=== PATIENT | female | born 1930 | race Caucasian/White ===

== ENCOUNTER 2018-09-08 14:24 | Emergency (ER) | payer MEDICARE, OTHER ==
[~2018-09-08] VITALS: Ht 149.9 cm; Wt 54.9 kg
--- NOTE | 2018-09-08 14:36 | NUR ---
BIBRA 88 FROM HOME C/O PALPITATION AND RAPID [phone] IN THE FIELD. PT AOX4, TACHYCARDIC, HYPOTENSIVE. RR EVEN AND UNLABORED. SKIN INTACT. NO ACUTE DISTRESS NOTED. HOOKED TO MONITOR AND MADE COMFORTABLE. SEEN BY DR BUCK. WILL CONT TO MONITOR.
[2018-09-08] MEDS ORDERED: DILTIAZEM HCL 25 MG IV ONE (14:49)
[2018-09-08] MEDS ORDERED: DILTIAZEM HCL 50 MG IV IV ONE (15:00)
[2018-09-08] MEDS ORDERED: Calcium Gluconate 1GM/10ML 4.65 MEQ in IV NS 0.9% 50 ML IV ONE (15:00)
[2018-09-08] MEDS ORDERED: IV NS 0.9% 100 ML IV ONE (15:00)
[2018-09-08 15:06] LABS: BASOPHILS % (AUTO) 0.2 % (0.0-2.0); EOSINOPHILS % (AUTO) 1.6 % (0.0-6.0); HEMATOCRIT 45 % (33-45); HEMOGLOBIN 14.6 g/dL (11.5-14.8); LYMPHOCYTES # (AUTO) 0.6 /CMM (0.8-4.8); LYMPHOCYTES % (AUTO) 7.8 % (20.0-44.0); MEAN CORPUSCULAR HGB CONC 33 g/dl (31.0-36.0); MEAN CORPUSCULAR VOLUME 96 fL (82-100); MONOCYTES # (AUTO) 0.8 /CMM (0.1-1.30); MONOCYTES % (AUTO) 9.3 % (2.0-12.0); NEUTROPHILS # (AUTO) 6.6 /CMM (1.8-8.9); NEUTROPHILS % (AUTO) 81.1 % (43.0-81.0); PLATELET COUNT (AUTO) 232 /CMM (150-450); RED BLOOD CELL COUNT(AUTO) 4.71 MIL/uL (4.0-5.2); WHITE BLOOD COUNT (AUTO) 8.2 K/uL (4.3-11.0)
[2018-09-08 15:19] LABS: CALCIUM, SERUM 10.8 mg/dL (8.5-10.1); CARBON DIOXIDE 31 mmol/L (21-32); CHLORIDE 105 mmol/L (98-107); CREATININE 1.6 mg/dL (0.6-1.3); GLUCOSE 114 mg/dL (74-106); POTASSIUM 4.5 mmol/L (3.5-5.1); SODIUM SERUM 143 mmol/L (136-145); UREA NITROGEN, BLOOD 22 mg/dL (7-18)
[2018-09-08 15:30] LABS: ALANINE AMINOTRANSFERASE 10 U/L (12-78); ALBUMIN 3.7 g/dL (3.4-5.0); ALKALINE PHOSPHATASE 71 U/L (46-116); ASPARTATE AMINOTRANSFERASE 15 U/L (15-37); B-TYPE NATRIURETIC PEPTIDE 817 PG/ML (0-125); BILIRUBIN,DIRECT 0.1 mg/dL (0.0-0.2); BILIRUBIN,TOTAL 0.6 mg/dL (0.2-1.0); TOTAL PROTEIN, SERUM 7.4 g/dL (6.4-8.2)
[2018-09-08 15:35] LABS: APPEARANCE,URINE Cloudy (CLEAR); BILIRUBIN,URINE Negative (NEGATIVE); BLOOD, URINE Moderate Ery/uL (NEGATIVE); COLOR,URINE Other (YELLOW); KETONES,URINE Trace (NEGATIVE); LEUKOCYTE ESTERASE ,URINE Small (NEGATIVE); NITRITE, URINE Negative (NEGATIVE); PROTEIN,URINE >=300 mg/dl (NEGATIVE); UGLUCOSE Negative (NEGATIVE); UROBILINOGEN,URINE 0.2 EU/dL (0.2)
[2018-09-08 15:44] LABS: BACTERIA,URINE Moderate /HPF (None Seen); SQUAMOUS EPITHELIAL CELL,UR Few /HPF (None Seen)
--- NOTE | 2018-09-08 16:10 | NUR ---
HEART RATE STABILIZED AFTER MEDICATION. MD STREET
--- NOTE | 2018-09-08 16:35 | NUR ---
CALLED [employer] [facility] ARCHITECT WAS PAGED.
[2018-09-08] MEDS ORDERED: CEFTRIAXONE 1GM BAG (ER ONLY) 1 GM/50 ML PIGGYBACK IV ONE (17:00)
[2018-09-08] MEDS ORDERED: CEFTRIAXONE 1GM BAG (ER ONLY) 50 ML IV ONE (18:05)
--- NOTE | 2018-09-08 18:48 | NUR ---
CALLED FOR FOOD TRAY
--- NOTE | 2018-09-08 18:52 | NUR ---
SPOKE WITH PT DAUGHTER, IVA, IN [place]. INFORMED HER PT WILL BE TRANSFERRED AND WILL KEEP HER UPDATED. CELL NUMBER [phone]
--- NOTE | 2018-09-08 18:57 | NUR ---
PT UP IN BED, EATING AND COMFORTABLE
--- NOTE | 2018-09-08 20:00 | NUR ---
PATIENT WILL BE TRANSFERED TO [facility] ETA OF 2100 WAS GIVEN. NUMBER TO GIVE REPORT
[2018-09-08 21:35] VITALS: BP 111/62
--- NOTE | 2018-09-08 21:35 | NUR ---
REPORT GIVEN TO SPINDLE SANDER DEREJE HEATH AND ESPINOZA SHAH AT [facility] FOR JORDEN
== END 2018-09-08 21:35 | disposition short-term general hospital (02) ==
LOC: ER 14:26
DX: I48.92 Unspecified atrial flutter (principal); R00.2 Palpitations; R60.0 Localized edema; F03.90 Unspecified dementia, unspecified severity, without behavioral disturbance, psychotic disturbance, mood disturbance, and anxiety; I48.91 Unspecified atrial fibrillation; F32.9 Major depressive disorder, single episode, unspecified; Z98.890 Other specified postprocedural states
CPT/HCPCS: 36415; 71045; 80048; 80076; 81001; 83880; 84443; 84484; 85025; 85730; 87077; 87081; 87086; 87186; 93005 ×2; 96365; 96367; 96375; 99285; A4216; A4606; J0610; J0696; J3490; J7030; 81000-TC

== ENCOUNTER 2018-10-29 11:00 | Emergency (ER) | payer MEDICARE ==
[~2018-10-29] VITALS: Ht 152.4 cm; Wt 56.2 kg
--- NOTE | 2018-10-29 11:08 | NUR ---
PT EDY FROM HOME FOR PROGRESSIVE SOB; PT AAOX4, PT ON MONITOR, VSS, NAD NOTED, PENDING MD VICKERS
[2018-10-29] MEDS ORDERED: LATANOPROST 0.005% (11:13)
[2018-10-29] MEDS ORDERED: FLUOXETINE HCL 10 MG CAPSULE (11:13)
[2018-10-29] MEDS ORDERED: AMIODARONE HCL 200 MG TABLET (11:13)
[2018-10-29 11:32] LABS: BASOPHILS % (AUTO) 0.7 % (0.0-2.0); EOSINOPHILS % (AUTO) 1.5 % (0.0-6.0); HEMATOCRIT 40 % (33-45); HEMOGLOBIN 13.5 g/dL (11.5-14.8); LYMPHOCYTES # (AUTO) 0.4 /CMM (0.8-4.8); LYMPHOCYTES % (AUTO) 5.4 % (20.0-44.0); MEAN CORPUSCULAR HGB CONC 34 g/dl (31.0-36.0); MEAN CORPUSCULAR VOLUME 96 fL (82-100); MONOCYTES # (AUTO) 0.5 /CMM (0.1-1.30); MONOCYTES % (AUTO) 7.5 % (2.0-12.0); NEUTROPHILS # (AUTO) 5.6 /CMM (1.8-8.9); NEUTROPHILS % (AUTO) 84.9 % (43.0-81.0); PLATELET COUNT (AUTO) 246 /CMM (150-450); RED BLOOD CELL COUNT(AUTO) 4.15 MIL/uL (4.0-5.2); WHITE BLOOD COUNT (AUTO) 6.6 K/uL (4.3-11.0)
[2018-10-29] MEDS ORDERED: LATA2.5D7 EACHEYE (11:37)
[2018-10-29 11:38] LABS: CALCIUM, SERUM 9.3 mg/dL (8.5-10.1); CARBON DIOXIDE 30 mmol/L (21-32); CHLORIDE 105 mmol/L (98-107); GLUCOSE 89 mg/dL (74-106); POTASSIUM 4.2 mmol/L (3.5-5.1); SODIUM SERUM 142 mmol/L (136-145); UREA NITROGEN, BLOOD 22 mg/dL (7-18)
[2018-10-29 11:52] LABS: B-TYPE NATRIURETIC PEPTIDE 8400 PG/ML (0-125)
[2018-10-29] MEDS ORDERED: MULT-24 PO (12:07)
--- NOTE | 2018-10-29 14:29 | NUR ---
PT BEING TRANSFERED TO [facility] DIRECT ADMIT TO ROOM 1300-2 RN FOR REPORT [phone] [phone]
--- NOTE | 2018-10-29 14:33 | NUR ---
[facility] ETA 1530 HOURS
[2018-10-29 14:41] VITALS: BP 188/66
--- NOTE | 2018-10-29 15:37 | NUR ---
REPORT GIVEN TO JODIE NURSE AT [facility], PT LEFT IN STABLE CONDITION VIA [facility]; VSS, NAD NOTED, ALL PPW GIVEN TO AMBULANCE STAFF.
== END 2018-10-29 15:40 | disposition short-term general hospital (02) ==
LOC: ER 11:04
DX: I13.0 Hypertensive heart and chronic kidney disease with heart failure and stage 1 through stage 4 chronic kidney disease, or unspecified chronic kidney disease (principal); I50.9 Heart failure, unspecified; N18.9 Chronic kidney disease, unspecified; J90 Pleural effusion, not elsewhere classified; R06.02 Shortness of breath; I48.91 Unspecified atrial fibrillation; F32.9 Major depressive disorder, single episode, unspecified; Z98.890 Other specified postprocedural states
CPT/HCPCS: 36415; 71045-TC; 80048-TC; 83880; 84484-TC; 85025-TC; 85730-TC

== ENCOUNTER 2019-10-22 08:56 | Inpatient (IN) | payer MEDICARE ==
[2019-10-22] VITALS (22 sets, daily range): BP systolic 122–172; BP diastolic 60–117
[~2019-10-22] VITALS: Ht 162.6 cm; Wt 54.4 kg
[~2019-10-22 08:56] MED LIST: LATA2.5D7 EACHEYE; MULT-24 PO
--- NOTE | 2019-10-22 09:00 | NUR ---
Pt received from Medics in Respiratory distress, Restless/agitated/Confused Tachypneic/tachycardic with saturations around 46%. Pt skin pale and mottled. Direct Bed to Negative pressure room/isolation prepared for possible intubation/Rescue Bipap.
[2019-10-22 09:20] LABS: BASOPHILS # (AUTO) 0.1 /CMM (0.0-0.2); BASOPHILS % (AUTO) 0.7 % (0.0-2.0); EOSINOPHILS % (AUTO) 0.8 % (0.0-6.0); HEMATOCRIT 40 % (33-45); HEMOGLOBIN 12.5 g/dL (11.5-14.8); LYMPHOCYTES # (AUTO) 1.1 /CMM (0.8-4.8); LYMPHOCYTES % (AUTO) 15.3 % (20.0-44.0); MEAN CORPUSCULAR HGB CONC 32 g/dl (31.0-36.0); MEAN CORPUSCULAR VOLUME 99 fL (82-100); MONOCYTES # (AUTO) 0.6 /CMM (0.1-1.30); MONOCYTES % (AUTO) 7.9 % (2.0-12.0); NEUTROPHILS # (AUTO) 5.6 /CMM (1.8-8.9); NEUTROPHILS % (AUTO) 75.3 % (43.0-81.0); PLATELET COUNT (AUTO) 308 /CMM (150-450); RED BLOOD CELL COUNT(AUTO) 4.02 MIL/uL (4.0-5.2); WHITE BLOOD COUNT (AUTO) 7.4 K/uL (4.3-11.0)
--- NOTE | 2019-10-22 09:20 | NUR ---
Bipap and ABG ordered by ER provided- see RT notes
[2019-10-22 09:30] LABS: CARBON DIOXIDE 24 mmol/L (21-32); CHLORIDE 108 mmol/L (98-107); CREATININE 2.1 mg/dL (0.6-1.3); GLUCOSE 184 mg/dL (74-106); POTASSIUM 3.8 mmol/L (3.5-5.1); SODIUM SERUM 144 mmol/L (136-145); UREA NITROGEN, BLOOD 28 mg/dL (7-18)
[2019-10-22 09:32] LABS: APPEARANCE,URINE Cloudy (CLEAR); BILIRUBIN,URINE SMALL (NEGATIVE); BLOOD, URINE Moderate Ery/uL (NEGATIVE); COLOR,URINE Yellow (YELLOW); KETONES,URINE Trace (NEGATIVE); NITRITE, URINE Negative (NEGATIVE); PH,URINE 5.5 (5.0-8.0); PROTEIN,URINE >=300 mg/dl (NEGATIVE); UGLUCOSE Negative (NEGATIVE); UROBILINOGEN,URINE 0.2 EU/dL (0.2)
--- NOTE | 2019-10-22 09:35 | NUR ---
RT NOTE PT PLACED ON BIPAP PER MD WEISS ORDER. ST 11/11 100% BUR 16. ALARMS SET SET PER PROTOCOL AND AUDIBLE. BIPAP PLUGGED IN TO RED OUTLET. AMBU BAG AT BED SIDE. FULL FACE MASK SIZE MEDIUM SECURED PROPERLY. Addendum: 10/22/19 at 0936 by LINDSAY WEISS RT Amended: Links added.
[2019-10-22 09:43] LABS: ALANINE AMINOTRANSFERASE 48 U/L (12-78); ALBUMIN 3.1 g/dL (3.4-5.0); ALKALINE PHOSPHATASE 76 U/L (46-116); ASPARTATE AMINOTRANSFERASE 51 U/L (15-37); B-TYPE NATRIURETIC PEPTIDE 58735 PG/ML (0-125); BILIRUBIN,TOTAL 1.4 mg/dL (0.2-1.0); TOTAL PROTEIN, SERUM 6.9 g/dL (6.4-8.2)
--- NOTE | 2019-10-22 09:45 | NUR ---
pt on Bipap at 15/5 100%. Respirations more even
--- NOTE | 2019-10-22 09:53 | NUR ---
panel on-call paged
--- NOTE | 2019-10-22 09:56 | NUR ---
room [id number]
[2019-10-22 09:59] LABS: D-DIMER 4.05 mg/L(FEU (0.17-0.50)
[2019-10-22] MEDS ORDERED: LEVOFLOXACIN 750 MG /D5W 150ML 150 ML IV ONE ×2 (10:00→10:08)
[2019-10-22] MEDS ORDERED: ASPIRIN 325 MG TABLET PO ONE (10:00)
[2019-10-22] MEDS ORDERED: NITROGLYCERIN PACKET 1 GM PACKET TD ONE (10:00)
[2019-10-22] MEDS ORDERED: FUROSEMIDE 40 MG/4 ML VIAL IV ONE (10:00)
[2019-10-22] MEDS ORDERED: FLUO10CA27 PO (10:05)
[2019-10-22] MEDS ORDERED: LEVO25TA9 PO (10:05)
[2019-10-22 10:08] LABS: ABG BASE EXCESS -8.3 mmol/L; ABG OXYGEN SATURATION 96.1 % (92.0-98.5); ABG PCO2 39.4 mmHg (35.0-45.0); ABG PH 7.276 (7.350-7.450); ABG PO2 98.3 mmHg (75.0-100.0); AaDO2 575.3 mmHg; COHb 0.6 % (0.5-1.5); MetHb 0.4 % (0.0-1.5); O2Hb 95.1 % (94.0-97.0); SITE, ABG Left Radial; VENT MODE, BG ST 15/5 100%
[2019-10-22] MEDS ORDERED: FUROSEMIDE 40 MG/4 ML VIAL ONE (10:08)
[2019-10-22] MEDS ORDERED: NITROGLYCERIN PACKET 1 GM PACKET ONE (10:08)
[2019-10-22] MEDS ORDERED: ASPIRIN 325 MG TABLET ONE (10:09)
[2019-10-22 10:15] LABS: CREATINE KINASE, TOTAL 297 U/L (26-192); FERRITIN 39 ng/mL (8-388)
--- NOTE | 2019-10-22 10:15 | NUR ---
Asleep, easily awakened appears more comfortable on BiPap
[2019-10-22 10:16] LABS: C-REACTIVE PROTEIN 1.6 mg/dL (0.0-0.9)
[2019-10-22 10:17] LABS: BACTERIA,URINE Many /HPF (None Seen); LEUKOCYTE ESTERASE ,URINE 2+ (NEGATIVE); SQUAMOUS EPITHELIAL CELL,UR Few /HPF (None Seen); WBC,URINE 21-50 /HPF (0-3)
--- NOTE | 2019-10-22 10:46 | NUR ---
Report/NKE to ESPINOZA Levi
[2019-10-22] MEDS ORDERED: ASPIRIN 300 MG/SUPP.RECT RC ONE (10:54)
[2019-10-22] MEDS ORDERED: Z GUARD REMEDY 2 OZ OINT TP PRN (11:00)
[2019-10-22] MEDS ORDERED: ASPIRIN 300 MG/SUPP.RECT RC SCH (11:00)
[2019-10-22] MEDS ORDERED: ONDANSETRON HCL/PF 4 MG/2 ML VIAL IVP PRN (11:00)
[2019-10-22] MEDS ORDERED: ACETAMINOPHEN 650 MG/SUPP.RECT RC PRN (11:00)
[2019-10-22] MEDS ORDERED: BUMETANIDE INJ 8 MG in IV NS 0.9% 48 ML IV ONE (11:00)
--- NOTE | 2019-10-22 11:10 | NUR ---
ICU/RN PT IS ADMITTED FROM ER, FROM HOME .WAS FOUND ALOC ,SOB. AND LOW SATO2.PT WAS ON BI-PAP IN ER.PER DR CHILD PLACED ON 15L NON-REBREATHER MASK SAT O2-98%.PT IS AWAKE,ALERT.BLIND.NO PAIN REPORTED AT THIS TIME.PERIFERAL IV.F/C IN PLACE.DRAINING WITH YELLOW URINE.LASIX 40 MG WAS GIVEN IN ER.PT HAS GENERALIZED EDEMA. REDNESS ON RAFIA AREA NOTED. PT IS DNR/DNI.RAFIA CARE PROVIDED,PLACED ON MONITOR. SR ON MONITOR.V/S STABLE,AFEBRILE,NO PAIN REPORTED AT THIS TIME.
[2019-10-22] MEDS ORDERED: ALBUTEROL FS 2.5 MG/0.5 ML VIAL.NEB NEB PRN (11:30)
[2019-10-22] MEDS ORDERED: IPRATROPIUM NEB FS 0.5 MG/2.5 ML AMPUL.NEB NEB PRN (11:30)
[2019-10-22 12:28] LABS: BILIRUBIN,DIRECT 0.3 mg/dL (0.0-0.2)
[2019-10-22] MEDS: ENOXAPARIN SODIUM 30 MG/0.3 ML DISP.SYRIN SQ SCH (12:36)
--- NOTE | 2019-10-22 15:05 | NUR ---
ICU/RN TALK TO THE FAMILY SIMBA-DAUGHTER [phone]-SHE LIVES OUT OF STATE.PT LIVES WITH HER SON ,WHO IS AUTISTIC,HE IS NOT ABLE TO PROVIDE GOOD CARE FOR HIS MOM ANYMORE..PT IS W/CHAIR BOUND, BLIND,NEED PLACEMENT FOR NURSING FACILITY OR LONG TERM CARE ADMINISTRATOR IN THE HOUSE.CISCO NETWORK ENGINEER NOTIFIED.LIFESTYLE COORDINATOR NOTIFIED.
--- NOTE | 2019-10-22 18:30 | NUR ---
ICU/RN PT IS RESTING IN THE BED .BUMEX 8 MG IV GIVEN ORDERED.V/S STABLE ,AFEBRILE.NO PAIN REPORTED AT THIS TIME.
--- NOTE | 2019-10-22 20:00 | NUR ---
Received patient awake alert blind oriented x1.Reoriented to place and time.Dx:CHF,Respiratory Failure,R/O COVID.Afebrile,SR,Normotensive.Respiration even and unlabored with O2 15L NRB mask sat 95%-99%.Denies pain.With sob on exertion.NPO status.FC to gravity draining clear yellow urine.Turned and repositioned to comfort offloading pressure points.Bed low,locked,side rails up,bed alarm on and call light within easy reach.DROPLET/CONTACT isolation maintained. Continue monitoring.
[2019-10-22] MEDS: LATANOPROST EYE DROP 0.005% 2.5 ML BOTTLE EACHEYE SCH (21:41)
[2019-10-23] VITALS (28 sets, daily range): BP systolic 113–186; BP diastolic 54–98
--- NOTE | 2019-10-23 04:13 | NUR ---
Patient BP 186/90 Nuris HOFFMAN here made aware with orders received and carried out. Patient chest pain or sob.Continue monitoring.
[2019-10-23] MEDS ORDERED: hydrALAZINE HCL IV 20 MG VIAL IV PRN (04:30)
[2019-10-23 05:22] LABS: BASOPHILS # (AUTO) 0.1 /CMM (0.0-0.2); BASOPHILS % (AUTO) 0.7 % (0.0-2.0); EOSINOPHILS % (AUTO) 0.7 % (0.0-6.0); HEMATOCRIT 34 % (33-45); HEMOGLOBIN 11.4 g/dL (11.5-14.8); LYMPHOCYTES # (AUTO) 0.4 /CMM (0.8-4.8); LYMPHOCYTES % (AUTO) 6.5 % (20.0-44.0); MEAN CORPUSCULAR HGB CONC 33 g/dl (31.0-36.0); MEAN CORPUSCULAR VOLUME 95 fL (82-100); MONOCYTES # (AUTO) 0.7 /CMM (0.1-1.30); MONOCYTES % (AUTO) 9.8 % (2.0-12.0); NEUTROPHILS # (AUTO) 5.7 /CMM (1.8-8.9); NEUTROPHILS % (AUTO) 82.3 % (43.0-81.0); PLATELET COUNT (AUTO) 217 /CMM (150-450); RED BLOOD CELL COUNT(AUTO) 3.62 MIL/uL (4.0-5.2); WHITE BLOOD COUNT (AUTO) 6.9 K/uL (4.3-11.0)
[2019-10-23 05:56] LABS: ALANINE AMINOTRANSFERASE 57 U/L (12-78); ALBUMIN 2.8 g/dL (3.4-5.0); ALKALINE PHOSPHATASE 64 U/L (46-116); ASPARTATE AMINOTRANSFERASE 59 U/L (15-37); CALCIUM, SERUM 9.2 mg/dL (8.5-10.1); CARBON DIOXIDE 28 mmol/L (21-32); CHLORIDE 105 mmol/L (98-107); CREATININE 2.2 mg/dL (0.6-1.3); GLUCOSE 75 mg/dL (74-106); MAGNESIUM 1.6 mg/dL (1.8-2.4); PHOSPHORUS 4.2 mg/dL (2.5-4.9); POTASSIUM 3.5 mmol/L (3.5-5.1); SODIUM SERUM 144 mmol/L (136-145); TOTAL PROTEIN, SERUM 6.2 g/dL (6.4-8.2); UREA NITROGEN, BLOOD 30 mg/dL (7-18)
--- NOTE | 2019-10-23 06:00 | NUR ---
Patient last BP 140/58 turned and repositioned.Appears comfortable.Good urine output. Denies pain or sob.SR,afebrile throughout the night.Will endorse to day shift for continuity of care.
[2019-10-23 06:14] LABS: CHOLESTEROL 247 mg/dL (<200); CREATINE KINASE, TOTAL 173 U/L (26-192); FERRITIN 37 ng/mL (8-388); HDL CHOLESTEROL 54 mg/dL (40-60); LDL 176 mg/dL (0-99); THYROID STIMULATING HORMONE 27.646 uIU/mL (0.358-3.74); TRIGLYCERIDES 62 mg/dL (30-150)
[2019-10-23 06:17] LABS: D-DIMER 5.38 mg/L(FEU (0.17-0.50)
[2019-10-23 07:21] LABS: B-TYPE NATRIURETIC PEPTIDE 46795 PG/ML (0-125)
[2019-10-23] MEDS ORDERED: BUMETANIDE INJ 8 MG in IV NS 0.9% 48 ML IV ONE (09:00)
[2019-10-23] MEDS ORDERED: FUROSEMIDE 40 MG/4 ML VIAL IV SCH (09:00)
[2019-10-23] MEDS: PANTOPRAZOLE 40 MG VIAL IV SCH (09:10)
[2019-10-23] MEDS: POTASSIUM CL. PREMIX PERIPHER. 50 ML IV SCH ×4 (09:10→14:46)
[2019-10-23] MEDS: ENOXAPARIN SODIUM 30 MG/0.3 ML DISP.SYRIN SQ SCH (09:11)
--- NOTE | 2019-10-23 09:11 | NUR ---
placed into 6 lpm o2 flow via nasal cannula from non rebreather. Addendum: 10/23/19 at 13 by AUREA GOVEA RT Amended: Links added.
[2019-10-23] MEDS ORDERED: Magnesium 1GM/D5W 100ML PREMIX 100 ML IV SCH ×2 (12:00→15:00)
[2019-10-23] MEDS ORDERED: POLYETHYLENE GLYCOL 3350 17 GM POWD.PACK PO PRN (17:00)
--- NOTE | 2019-10-23 17:05 | NUR ---
ICU/RN PT IS STABLE TO TRANSFER TO TELE UNIT .AWAKE ,ALERT.EATS 100% FROM HER MEAL TRAY.DUE MEDS ATE GIVEN ORDERED.V/S STABLE ,AFEBRILE
--- NOTE | 2019-10-23 17:30 | NUR ---
it integration architect Notes Received patient from ICU, transferred. Patient in stable condition. Alert and oriented x3 Sinus Rhythm. Per ICU nurse Dominguez catheter drained 3000mL. Yvrose Redness. Patient is on 2gm sodium diet. Eating right now without any signs of respiratory distress or swallow difficulty. R FA 18g. HARDIK Mid Line. Per hand off IV bumix given. 1.6gm IV given. KCL 40 meq given to correct hypokalemia.
--- NOTE | 2019-10-23 19:01 | NUR ---
magnet placer Notes Patient is in bed resting comfortably. No acute events. Bed in lowest position, Call light within reach. All measures taken for client safety. Will continue to monitor.
[2019-10-23] MEDS: LATANOPROST EYE DROP 0.005% 2.5 ML BOTTLE EACHEYE SCH (22:07)
[2019-10-24] VITALS: BP 133/69
[2019-10-24 04:00] VITALS: BP 121/61
[2019-10-24 08:00] VITALS: BP_SYST 133; BP_DIAS 72; BP_DIAS 80
--- NOTE | 2019-10-24 08:15 | NUR ---
upper cutter machine Notes Received patient from night coordinator. Patient is on 6L nasal cannula With 02 Sat of 94. Alert and oreintedx3. NSR 70s Patient has a diaper. FC draining clear yellow urine. Bedrest. Skin has aurea redness. On a 2g sodium diet. RFA 18g and 18g midline HARDIK. Flushing well and dressing intact. Spoke with daughter this AM and she is out of state. Patient was informed via daughters request that her son with Autism is being cared for and needs met. Bed in lowest position, call light within reach, all patient needs attended to.
[2019-10-24 08:41] LABS: BASOPHILS % (AUTO) 0.3 % (0.0-2.0); EOSINOPHILS % (AUTO) 2.5 % (0.0-6.0); HEMATOCRIT 35 % (33-45); HEMOGLOBIN 11.7 g/dL (11.5-14.8); LYMPHOCYTES # (AUTO) 0.7 /CMM (0.8-4.8); MEAN CORPUSCULAR HGB CONC 33 g/dl (31.0-36.0); MEAN CORPUSCULAR VOLUME 94 fL (82-100); MONOCYTES # (AUTO) 0.9 /CMM (0.1-1.30); MONOCYTES % (AUTO) 11.5 % (2.0-12.0); NEUTROPHILS # (AUTO) 6.4 /CMM (1.8-8.9); NEUTROPHILS % (AUTO) 77.7 % (43.0-81.0); PLATELET COUNT (AUTO) 235 /CMM (150-450); RED BLOOD CELL COUNT(AUTO) 3.76 MIL/uL (4.0-5.2); WHITE BLOOD COUNT (AUTO) 8.2 K/uL (4.3-11.0)
[2019-10-24 09:03] LABS: ALANINE AMINOTRANSFERASE 53 U/L (12-78); ALBUMIN 2.7 g/dL (3.4-5.0); ALKALINE PHOSPHATASE 64 U/L (46-116); ASPARTATE AMINOTRANSFERASE 49 U/L (15-37); BILIRUBIN,TOTAL 0.8 mg/dL (0.2-1.0); CALCIUM, SERUM 9.1 mg/dL (8.5-10.1); CARBON DIOXIDE 30 mmol/L (21-32); CHLORIDE 100 mmol/L (98-107); CREATININE 2.4 mg/dL (0.6-1.3); GLUCOSE 90 mg/dL (74-106); MAGNESIUM 1.6 mg/dL (1.8-2.4); POTASSIUM 3.5 mmol/L (3.5-5.1); SODIUM SERUM 139 mmol/L (136-145); TOTAL PROTEIN, SERUM 6.2 g/dL (6.4-8.2); UREA NITROGEN, BLOOD 31 mg/dL (7-18)
[2019-10-24] MEDS: PANTOPRAZOLE 40 MG VIAL IV SCH (09:15)
[2019-10-24] MEDS: Fluoxetine 10 mg capsule PO SCH (09:15)
[2019-10-24] MEDS: ENOXAPARIN SODIUM 30 MG/0.3 ML DISP.SYRIN SQ SCH (09:15)
[2019-10-24] MEDS: LEVOTHYROXINE SODIUM 25 MCG TABLET PO SCH (09:15)
--- NOTE | 2019-10-24 10:30 | NUR ---
wood cabinetmaker Notes Central supply called x1 for IV pump for Levaquin infusion. Will follow up again.
[2019-10-24] MEDS: POTASSIUM CHLORIDE 20 MEQ TAB.PRT.SR PO SCH ×3 (11:12→11:36)
[2019-10-24] MEDS: LEVOFLOXACIN 500 MG /D5W 100ML 500 MG in PREMIX 1 EA IV SCH (11:12)
[2019-10-24] MEDS: FUROSEMIDE 100 MG/10 ML VIAL IV SCH ×3 (11:12→18:31)
[2019-10-24 12:00] VITALS: BP 133/72
[2019-10-24 16:00] VITALS: BP 133/72
--- NOTE | 2019-10-24 19:00 | NUR ---
rehab nurse Notes Patient is in bed resting comfortably. No acute events. Bed in lowest position, Call light within reach. All measures taken for client safety. Will continue to monitor.
--- NOTE | 2019-10-24 19:10 | NUR ---
promotions associate opening notes Received Pt from morning nurse. Pt is sitting in bed comfortably watching TV. Pt is alert and oriented X3. Respiration is normal in 6 L NC. No SOB. No S/S of distress noted. Tele monitor showed SR HR at 80 bpm. IV sites at RFA# 18 is clean, intact, and patent. HARDIK midline is clean, intact and patent. Dominguez cath is intact, patent and draining clear yellow urine. Safety precautions is maintained. Bed at low position, brakes locked, side rails upx2, bed alarm is on and call light is within reach. Will continue to monitor.
--- NOTE | 2019-10-24 19:50 | NUR ---
short order fry cook notes Pt signed the consent for thoracentesis. Pt is verbalized understanding.
[2019-10-24 20:00] VITALS: BP 120/56
--- NOTE | 2019-10-24 20:47 | NUR ---
coremaker floor notes Report given to ESPINOZA Pineda
--- NOTE | 2019-10-24 20:59 | NUR ---
advanced practice provider notes Transferred Pt to room 208 with ACLS protocol.
--- NOTE | 2019-10-24 21:15 | NUR ---
TOBACCO SWEEPER OPENING NOTES: RECEIVED PT FROM [facility]. PT ON 6LPM VIA NC AND IS TOLERATING WELL. NO SOB NOTED. NO S/S OF DISTRESS. PT IS A/OX2-3. PT TO BE PLACED ON TELE BOX BUT NO CABLES PRESENT AT THIS TIME. PT HAS PLUNKETT CATH AND IS ATTACHED TO DRAINAGE BAG WITH YELLOW URINE DRAINING. PT HAS R FOREARM #18G AND IS PATENT AND INTACT. CURRENTLY H/L. PT HAS HARDIK MIDLINE #20G AND IS PATENT AND INTACT. CURRENTLY H/L WELL. BED KEPT IN LOW, LOCKED POSITION AND SIDE RAILS X 3UP. BED ALARM ACTIVATED. WILL CONTINUE TO MONITOR PT.
[2019-10-24] MEDS: LATANOPROST EYE DROP 0.005% 2.5 ML BOTTLE EACHEYE SCH (22:13)
[2019-10-25 00:57] VITALS: BP 127/53
--- NOTE | 2019-10-25 03:17 | NUR ---
ADMINISTRATION VICE PRESIDENT NOTES: SPOKE WITH DR. DESOUZA. INFORMED HER THAT PT HAS NOT BEEN ON A TELE MONITOR SINCE SHE GOT TRANSFERRED HERE FROM [facility]. SPOKE WITH REFERRAL CLERK WELL IN REGARDS TO FINDING A CABLE. SHE IS AWARE.
[2019-10-25 04:00] VITALS: BP 130/57
[2019-10-25 04:32] VITALS: BP 130/57
--- NOTE | 2019-10-25 07:15 | NUR ---
MS RN NOTES PATIENT IN BED ALERT ORIENTED X 1. NO ACUTE DISTRESS NOTED. BREATHING UNLABORED. NO SOB NOTED. IV ACCESS PATENT AND INTACT, NO REDNESS NO SWELLING NOTED. PLUNKETT CATHETER INTACT DRAINING WELL. SAFETY MEASURES IN PLACE. CALL LIGHT WITHIN REACH. WILL CONTINUE TO MONITOR ACCORDINGLY.
--- NOTE | 2019-10-25 07:57 | NUR ---
MOLDED GOODS OPERATOR CLOSING NOTES: SINCE PT GOT TO FLOOR, PT HAS BEEN NPO SINCE THORACENTESIS TO BE PERFORMED TODAY. CONSENT IN CHART. PT REMAINS ON 6LPM NC AND IS TOLERATING WELL. NO SOB NOTED. NO S/S OF DISTRESS. PT IS A/OX2-3. PT HAS PLUNKETT CATH AND IS ATTACHED TO DRAINAGE BAG. OUTPUT WAS 950 ML. PT TURNED AND REPOSITIONED Q 2HRS. BED KEPT IN LOW, LOCKED POSITION, AND SIDE RAILS X 3UP. PT HAS NOT BEEN ON MONITOR AND DR. DESOUZA AND CUSTODIAL FOREMAN, EMILY, WAS MADE AWARE. NO WIRES AVAILABLE AT THIS TIME. ENDORSED TO AM NURSE FOR JORDEN.
[2019-10-25 08:16] LABS: ALANINE AMINOTRANSFERASE 46 U/L (12-78); ALBUMIN 2.7 g/dL (3.4-5.0); ALKALINE PHOSPHATASE 60 U/L (46-116); ASPARTATE AMINOTRANSFERASE 34 U/L (15-37); BASOPHILS % (AUTO) 0.4 % (0.0-2.0); BILIRUBIN,TOTAL 0.6 mg/dL (0.2-1.0); CARBON DIOXIDE 31 mmol/L (21-32); CHLORIDE 96 mmol/L (98-107); CREATININE 2.7 mg/dL (0.6-1.3); EOSINOPHILS % (AUTO) 2.9 % (0.0-6.0); GLUCOSE 96 mg/dL (74-106); HEMATOCRIT 35 % (33-45); HEMOGLOBIN 11.8 g/dL (11.5-14.8); LYMPHOCYTES # (AUTO) 0.5 /CMM (0.8-4.8); LYMPHOCYTES % (AUTO) 7.5 % (20.0-44.0); MAGNESIUM 1.4 mg/dL (1.8-2.4); MEAN CORPUSCULAR HGB CONC 34 g/dl (31.0-36.0); MEAN CORPUSCULAR VOLUME 93 fL (82-100); MONOCYTES # (AUTO) 0.9 /CMM (0.1-1.30); MONOCYTES % (AUTO) 12.5 % (2.0-12.0); NEUTROPHILS # (AUTO) 5.4 /CMM (1.8-8.9); NEUTROPHILS % (AUTO) 76.7 % (43.0-81.0); PHOSPHORUS 2.9 mg/dL (2.5-4.9); PLATELET COUNT (AUTO) 229 /CMM (150-450); POTASSIUM 3.8 mmol/L (3.5-5.1); RED BLOOD CELL COUNT(AUTO) 3.78 MIL/uL (4.0-5.2); SODIUM SERUM 136 mmol/L (136-145); TOTAL PROTEIN, SERUM 6.2 g/dL (6.4-8.2); UREA NITROGEN, BLOOD 33 mg/dL (7-18); WHITE BLOOD COUNT (AUTO) 7.1 K/uL (4.3-11.0)
[2019-10-25] MEDS: Fluoxetine 10 mg capsule PO SCH (08:29)
[2019-10-25] MEDS: LEVOTHYROXINE SODIUM 25 MCG TABLET PO SCH (08:29)
[2019-10-25] MEDS: ENOXAPARIN SODIUM 30 MG/0.3 ML DISP.SYRIN SQ SCH (09:00)
--- NOTE | 2019-10-25 09:03 | NUR ---
WOUND CARE CONSULT: PT PRESENTS WITH INTACT SKIN AND SOME SKIN GROWTHS ON LEGS, PRESENT ON ADMISSION. RECOMMENDATIONS MADE FOR SKIN PROTECTION. DISCUSSED WITH NURSING STAFF. PT IS INCONTINENT OF STOOL. PLUNKETT CATH NOTED. WILL SEE PRN. CRUZ IN AGREEMENT WITH PLAN OF CARE.
[2019-10-25] MEDS ORDERED: PANTOPRAZOLE 40 MG/PACK PACK NG SCH (09:30)
[2019-10-25] MEDS: PANTOPRAZOLE 40 MG/PACK PACK PO SCH (10:04)
--- NOTE | 2019-10-25 13:00 | NUR ---
MS DORAN NOTES THORACENTESIS RADHA CORTEZ DR, 810CC SPECIMEN SENT TO LABORATORY FOR CYTOLOGY. Addendum: 10/25/19 at 1706 by JUSTIN MCELROY RN DISREGARD ABOVE NOTES MS DORAN NOTES THORACENTESIS DONE BY RADHA GLASS, 810CC SPECIMEN SENT TO LABORATORY FOR CYTOLOGY.
[2019-10-25] MEDS ORDERED: Magnesium 1GM/D5W 100ML PREMIX PIGGYBACK IV ONE (15:30)
[2019-10-25 16:00] VITALS: BP 128/69
--- NOTE | 2019-10-25 19:00 | NUR ---
MS RN NOTES PATIENT IN BED ALERT ORIENTED X 1. NO ACUTE DISTRESS NOTED. BREATHING UNLABORED. NO SOB NOTED. IV ACCESS PATENT AND INTACT, NO REDNESS NO SWELLING NOTED. PLUNKETT CATHETER INTACT DRAINING WELL. NEEDS ATTENDED AND ANTICIPATED. KEPT COMFORTABLE. REPOSITION EVERY 2 HOURS AND NEEDED. SAFETY MEASURES IN PLACE. CALL LIGHT WITHIN REACH WILL ENDORSE TO NIGHT NURSE FOR CONTINUITY OF CARE.
--- NOTE | 2019-10-25 20:00 | NUR ---
MS RN NOTE: PATIENT RESTING IN BED, NO ACUTE DISTRESS NOTED. BREATHING EVEN AND UNLABORED, NO SOB NOTED. IV TO RFA IN PLACE AND HARDIK MIDLINE IN PLACE. PLUNKETT CATHETER IN PLACE, DRAINING CLEAR YELLOW URINE. BED LOCKED AND IN LOWEST POSITION, CALL LIGHT IN REACH. WILL CONTINUE TO MONITOR.
[2019-10-25 20:45] VITALS: BP 110/57
[2019-10-25] MEDS: LATANOPROST EYE DROP 0.005% 2.5 ML BOTTLE EACHEYE SCH (21:23)
--- NOTE | 2019-10-26 03:45 | NUR ---
MS RN NOTE: PATIENT SLEEPING IN BED, NO ACUTE DISTRESS NOTED. BREATHING EVEN AND UNLABORED, NO SOB NOTED. IV TO RFA IN PLACE AND HARDIK MIDLINE IN PLACE. PLUNKETT CATHETER IN PLACE, DRAINING CLEAR YELLOW URINE. BED LOCKED AND IN LOWEST POSITION, CALL LIGHT IN REACH. WILL CONTINUE TO MONITOR.
--- NOTE | 2019-10-26 06:30 | NUR ---
MS RN NOTE: PATIENT RESTING IN BED, NO ACUTE DISTRESS NOTED. BREATHING EVEN AND UNLABORED, NO SOB NOTED. IV TO RFA IN PLACE AND HARDIK MIDLINE IN PLACE. PLUNKETT CATHETER IN PLACE, DRAINED CLEAR YELLOW URINE. BED LOCKED AND IN LOWEST POSITION, CALL LIGHT IN REACH. WILL ENDORSE TO DAY NURSE TO CONTINUE WITH PLAN OF CARE.
[2019-10-26 06:55] LABS: BASOPHILS % (AUTO) 0.3 % (0.0-2.0); EOSINOPHILS % (AUTO) 2.1 % (0.0-6.0); HEMATOCRIT 38 % (33-45); HEMOGLOBIN 12.6 g/dL (11.5-14.8); LYMPHOCYTES # (AUTO) 0.5 /CMM (0.8-4.8); MEAN CORPUSCULAR HGB CONC 33 g/dl (31.0-36.0); MEAN CORPUSCULAR VOLUME 93 fL (82-100); MONOCYTES # (AUTO) 0.8 /CMM (0.1-1.30); MONOCYTES % (AUTO) 11.5 % (2.0-12.0); NEUTROPHILS # (AUTO) 5.8 /CMM (1.8-8.9); NEUTROPHILS % (AUTO) 79.1 % (43.0-81.0); PLATELET COUNT (AUTO) 230 /CMM (150-450); RED BLOOD CELL COUNT(AUTO) 4.12 MIL/uL (4.0-5.2); WHITE BLOOD COUNT (AUTO) 7.4 K/uL (4.3-11.0)
[2019-10-26 07:07] LABS: CALCIUM, SERUM 9.1 mg/dL (8.5-10.1); CARBON DIOXIDE 32 mmol/L (21-32); CHLORIDE 94 mmol/L (98-107); CREATININE 2.8 mg/dL (0.6-1.3); GLUCOSE 108 mg/dL (74-106); MAGNESIUM 1.8 mg/dL (1.8-2.4); POTASSIUM 3.5 mmol/L (3.5-5.1); SODIUM SERUM 134 mmol/L (136-145); UREA NITROGEN, BLOOD 37 mg/dL (7-18)
--- NOTE | 2019-10-26 07:37 | NUR ---
MS RN OPENING NOTES RECEIVED PT IN BED, ASLEEP, EASILY AROUSED, A/OX2-3. PT ON SUPPLEMENTARY OXYGEN AT 4L VIA NC, WITH NO ACUTE RESPIRATORY DISTRESS NOTED. PT DENIES ANY PAIN OR DISCOMFORT AT THIS TIME. PIVS TO RFA G18 AND HARDIK MIDLINE, BOTH FLUSHED WITH NS INTACT AND OPERATIONAL. FC IN PLACE WITH YELLOW URINE IN THE BAG. PT KEPT COMFORTABLE. CALL LIGHT KEPT WITHIN REACH. PT'S BED IN LOWEST, LOCKED POSITION WITH SRX3. WILL CONTINUE PLAN OF CARE.
[2019-10-26] MEDS: LEVOTHYROXINE SODIUM 25 MCG TABLET PO SCH (07:55)
[2019-10-26] MEDS: PANTOPRAZOLE 40 MG/PACK PACK PO SCH (08:00)
[2019-10-26] MEDS: Fluoxetine 10 mg capsule PO SCH (08:00)
[2019-10-26] MEDS: ENOXAPARIN SODIUM 30 MG/0.3 ML DISP.SYRIN SQ SCH (08:01)
[2019-10-26] MEDS ORDERED: PANTOPRAZOLE 40 MG/PACK PACK PO SCH (09:00)
[2019-10-26 09:04] VITALS: BP 109/52
[2019-10-26] MEDS: LEVOFLOXACIN 500 MG /D5W 100ML 500 MG in PREMIX 1 EA IV SCH (10:58)
[2019-10-26 12:00] VITALS: BP 103/59
[2019-10-26 12:13] LABS: APPEARANCE,URINE CLEAR (CLEAR); BILIRUBIN,URINE NEGATIVE (NEGATIVE); BLOOD, URINE SMALL Ery/uL (NEGATIVE); COLOR,URINE YELLOW (YELLOW); KETONES,URINE NEGATIVE (NEGATIVE); LEUKOCYTE ESTERASE ,URINE TRACE (NEGATIVE); NITRITE, URINE NEGATIVE (NEGATIVE); PROTEIN,URINE 30 mg/dl (NEGATIVE); UGLUCOSE NEGATIVE (NEGATIVE); UROBILINOGEN,URINE 0.2 EU/dL (0.2)
[2019-10-26 12:17] LABS: CREATININE, URINE 209.2 MG/DL (30.0-125.0); URINE TOTAL PROTEIN 67.9 mg/dL (0-11.9)
[2019-10-26 12:26] LABS: BACTERIA,URINE Few /HPF (None Seen)
[2019-10-26 13:08] LABS: EOSINOPHIL,URINE None Seen
[2019-10-26 16:00] VITALS: BP 120/62
[2019-10-26] MEDS ORDERED: LEVO500T75 PO (16:13)
--- NOTE | 2019-10-26 17:53 | NUR ---
MS RN NOTES SPOKE TO JONATHAN/ANTWON BANUELOS PLAN FOR DISCHARGE TO SNF. DAUGHTER/JUN AT [place] MADE AWARE WELL. PER DAUGHTER, PT HAS ONLY A SON AT HOME WITH AUTISM AND NEEDS MORE ASSISTANCE. HOSPITALIST/AP AWARE AND AWAITING FOR SNF PLACEMENT.
--- NOTE | 2019-10-26 18:47 | NUR ---
MS RN CLOSING NOTES PT REMAINS IN BED, INTERMITTENTLY DOZING OFF, EASILY AROUSED, A/OX2-3. PT ON SUPPLEMENTARY OXYGEN AT 2L VIA NC, WITH NO ACUTE RESPIRATORY DISTRESS NOTED. PT DENIES ANY PAIN OR DISCOMFORT AT THIS TIME. PIVS TO RFA G18 AND HARDIK MIDLINE, BOTH FLUSHED WITH NS INTACT AND OPERATIONAL. FC IN PLACE WITH YELLOW URINE IN THE BAG, 350ML OUTPUT. PT KEPT COMFORTABLE. ALL NEEDS AND CARE ATTENDED. CALL LIGHT KEPT WITHIN REACH. PT'S BED IN LOWEST, LOCKED POSITION WITH SRX3. WILL ENDORSE TO INCOMING NIGHT NURSE FOR JORDEN.
[2019-10-26 20:00] VITALS: BP 91/58
[2019-10-26] MEDS: LATANOPROST EYE DROP 0.005% 2.5 ML BOTTLE EACHEYE SCH (21:36)
[2019-10-26 23:00] VITALS: BP 99/55
--- NOTE | 2019-10-26 23:00 | NUR ---
MS RN NOTE: PATIENT TRANSFERRED TO ROOM 307-1, IN STABLE CONDITION, ON OXYGEN 2 LITERS PER MINUTE VIA NASAL CANNULA. PLUNKETT CATHETER EMPTIED 250ML OF CLEAR YELLOW URINE. REPORT GIVEN TO ESPINOZA MOBLEY. PATIENT BELONGINGS, MEDICATIONS AND CHART TRANSFERRED. PATIENT OFF FLOOR IN STABLE CONTINUE.
[2019-10-26 23:08] VITALS: BP 99/55
--- NOTE | 2019-10-26 23:10 | NUR ---
MS RETANNED LEATHER ROLLER NOTES PATIENT ARRIVED ON UNIT AT 2300. TRANSFERRED FROM MS2. IN STABLE CONDITION. A/O X2-3. ABLE TO VERBALIZE NEEDS. ON 2L NC. NO S/S OF ACUTE RESPIRATORY DISTRESS OR C/O PAIN. BELONGINGS TRANSFERRED WITH PATIENT. SAFETY MEASURES IN PLACE. BED LOCKED, ALARM ON, SIDE RAILS X2, CALL LIGHT WITHIN REACH. WILL CONTINUE TO MONITOR.
[2019-10-27] MEDS: LEVOTHYROXINE SODIUM 25 MCG TABLET PO SCH (06:51)
--- NOTE | 2019-10-27 07:05 | NUR ---
MS RN OPENING NOTES RECEIVED PT IN BED, ASLEEP, EASY TO AROUSE, A/OX2-3. PT ON OXYGEN 2L VIA NC, WITH NO ACUTE RESPIRATORY DISTRESS NOTED. PT DENIES ANY PAIN OR DISCOMFORT AT THIS TIME. IV ACCESS TO RFA G18 AND HARDIK MIDLINE, BOTH FLUSHED WITH NS, INTACT, PATENT AND OPERATIONAL. FC IN PLACE WITH YELLOW URINE IN THE BAG. PT KEPT COMFORTABLE. CALL LIGHT KEPT WITHIN REACH. PT'S BED IN LOWEST, LOCKED POSITION WITH SRX3. WILL CONTINUE PLAN OF CARE.
--- NOTE | 2019-10-27 07:46 | NUR ---
MS RN CLOSING NOTES PATIENT SLEEPING IN BED COMFORTABLY. REMAINED STABLE DURING SHIFT. A/O X2-3. ABLE TO VERBALIZE NEEDS. ON 2L NC. NO S/S OF ACUTE RESPIRATORY DISTRESS OR C/O PAIN. SAFETY MEASURES IN PLACE. BED LOCKED, ALARM ON, SIDE RAILS X2, CALL LIGHT WITHIN REACH. WILL ENDORSE TO DAY SHIFT NURSE PLAN OF CARE.
[2019-10-27 08:00] VITALS: BP 136/84
[2019-10-27] MEDS: PANTOPRAZOLE 40 MG/PACK PACK PO SCH (09:28)
[2019-10-27] MEDS: Fluoxetine 10 mg capsule PO SCH (09:28)
[2019-10-27] MEDS: ENOXAPARIN SODIUM 30 MG/0.3 ML DISP.SYRIN SQ SCH (09:33)
[2019-10-27 16:00] VITALS: BP 117/63
--- NOTE | 2019-10-27 19:00 | NUR ---
MS RN CLOSING NOTES PT IN BED AT THIS TIME, AWAKE WITH HOB ELEVATED TO HIGH FOWLERS. PT STABLE THROUGHOUT SHIFT. BREATHING EVEN AND UNLABORED. PT ON 6L O2 VIA NC. NO S/S OF ANY ACUTE PAIN. NG TUBE IN PLACE WITH 2 PARAS HN RUNNING AT 45ML/HR. NO RESIDUAL NOTED. HARDIK PICC LINE TRIPLE LUMEN INTACT AND PATENT. FC IN PLACE, INTACT AND DRAINING TO GRAVITY CLEAR YELLOW URINE OUTPUT OF 400. PT KEPT CLEAN AND DRY. ALL NEEDS PROVIDED FOR ANTICIPATED. SAFETY PRECAUTION IN PLACE. BED IN LOCKED LOWEST POSITION, CALL LIGHT WITHIN REACH. WILL ENDORSE TO NIGHT NURSE FOR JORDEN Addendum: 10/28/19 at 0733 by JANESSA SINGH RN MS RN CLOSING NOTES PT IN BED SLEEPING INTERMITTENTLY AT THIS TIME, EASY TO AROUSE. PT REMAINED STABLE THROUGHOUT SHIFT. A/O X2-3. PT IS ABLE TO VERBALIZE NEEDS. ALL NEEDS ATTENDED TO ANTICIPATED, ON 2L NC. NO SOB NOTED, NO C/O PAIN. PT KEPT CLEAN AND DRY. SAFETY MEASURES IN PLACE. BED IN LOCKED LOWEST PSOTION, SIDE RAILS X2, CALL LIGHT WITHIN REACH. WILL ENDORSE ENDORSE TO NIGHT NURSE FOR JORDEN
--- NOTE | 2019-10-27 19:09 | NUR ---
MS RN CLOSING NOTES PT IN BED SLEEPING INTERMITTENTLY AT THIS TIME, EASY TO AROUSE. PT REMAINED STABLE THROUGHOUT SHIFT. A/O X2-3. PT IS ABLE TO VERBALIZE NEEDS. ALL NEEDS ATTENDED TO ANTICIPATED, ON 2L NC. NO SOB NOTED, NO C/O PAIN. PT KEPT CLEAN AND DRY. SAFETY MEASURES IN PLACE. BED IN LOCKED LOWEST PSOTION, SIDE RAILS X2, CALL LIGHT WITHIN REACH. WILL ENDORSE ENDORSE TO NIGHT NURSE FOR JORDEN
[2019-10-27 20:00] VITALS: BP 162/73
[2019-10-27] MEDS: LATANOPROST EYE DROP 0.005% 2.5 ML BOTTLE EACHEYE SCH (22:33)
--- NOTE | 2019-10-28 06:35 | NUR ---
MS RN NOTES AWAKE & RESPONSIVE. NOT IN ANY DISTRESS. NO SOB NOTED. DENIES ANY PAIN OR DISCOMFORT AT THIS TIME. AM CARE DONE. MONITORED ACCORDINGLY. CALL LIGHT WITHIN REACH. BED IN LOWEST POSITION. SR UP X3 WITH BED ALARM ON FOR SAFETY. WILL ENDORSE TO NEXT SHIFT.
--- NOTE | 2019-10-28 07:02 | NUR ---
MS RN OPENING NOTES RECEIVED PT IN BED, AWAKE AND RESPONSIVE. NOS/S OF ANY ACUTE DISTRESS NOTED. PT DENIES ANY PAIN OR DISCOMFORT AT THIS TIME. IV ACCESS TO RFA G18 AND HARDIK MIDLINE, BOTH FLUSHED WITH NS, INTACT, PATENT AND OPERATIONAL. FC IN PLACE WITH CLEAR YELLOW URINE DRAINING TO GRAVITY. ASPIRATION AND SAFETY PRECAUTIONS IN PLACE. BED IN LOCKED LOWEST POSITION, CALL LIGHT WITHIN REACH, SIDE RAILS UP. WILL CONTINUE TO MONITOR
[2019-10-28] MEDS: LEVOTHYROXINE SODIUM 25 MCG TABLET PO SCH (07:50)
[2019-10-28 08:00] VITALS: BP 118/61
[2019-10-28] MEDS: Fluoxetine 10 mg capsule PO SCH (09:41)
[2019-10-28] MEDS: PANTOPRAZOLE 40 MG/PACK PACK PO SCH (09:41)
[2019-10-28] MEDS: ENOXAPARIN SODIUM 30 MG/0.3 ML DISP.SYRIN SQ SCH (09:43)
[2019-10-28] MEDS: LEVOFLOXACIN 500 MG /D5W 100ML 500 MG in PREMIX 1 EA IV SCH (11:50)
--- NOTE | 2019-10-28 13:40 | NUR ---
COVID 19 SPECIMEN COLLECTED @ 1300 AND SENT TO LAB @ 2726 ORDERED
[2019-10-28 14:41] LABS: BASOPHILS % (AUTO) 0.3 % (0.0-2.0); EOSINOPHILS % (AUTO) 2.3 % (0.0-6.0); HEMATOCRIT 35 % (33-45); HEMOGLOBIN 11.7 g/dL (11.5-14.8); LYMPHOCYTES # (AUTO) 0.4 /CMM (0.8-4.8); LYMPHOCYTES % (AUTO) 6.5 % (20.0-44.0); MEAN CORPUSCULAR HGB CONC 33 g/dl (31.0-36.0); MEAN CORPUSCULAR VOLUME 94 fL (82-100); MONOCYTES % (AUTO) 14.3 % (2.0-12.0); NEUTROPHILS # (AUTO) 5.2 /CMM (1.8-8.9); NEUTROPHILS % (AUTO) 76.6 % (43.0-81.0); PLATELET COUNT (AUTO) 191 /CMM (150-450); RED BLOOD CELL COUNT(AUTO) 3.77 MIL/uL (4.0-5.2); WHITE BLOOD COUNT (AUTO) 6.7 K/uL (4.3-11.0)
[2019-10-28 15:05] LABS: ALANINE AMINOTRANSFERASE 29 U/L (12-78); ALBUMIN 2.6 g/dL (3.4-5.0); ALKALINE PHOSPHATASE 56 U/L (46-116); ASPARTATE AMINOTRANSFERASE 27 U/L (15-37); BILIRUBIN,TOTAL 0.5 mg/dL (0.2-1.0); CALCIUM, SERUM 8.8 mg/dL (8.5-10.1); CARBON DIOXIDE 32 mmol/L (21-32); CHLORIDE 95 mmol/L (98-107); CREATININE 2.8 mg/dL (0.6-1.3); GLUCOSE 110 mg/dL (74-106); MAGNESIUM 1.9 mg/dL (1.8-2.4); PHOSPHORUS 3.3 mg/dL (2.5-4.9); POTASSIUM 3.5 mmol/L (3.5-5.1); SODIUM SERUM 134 mmol/L (136-145); TOTAL PROTEIN, SERUM 6.3 g/dL (6.4-8.2); UREA NITROGEN, BLOOD 43 mg/dL (7-18)
[2019-10-28 15:54] VITALS: BP 113/54
--- NOTE | 2019-10-28 19:00 | NUR ---
MS RN CLOSING NOTES PT IN BED AWAKE AT THIS TIME. PT REMAINED STABLE THROUGHOUT SHIFT. A/O X2-3. PT IS ABLE TO MAKE NEEDS KNOWN. ALL NEEDS PROVIDED TO ANTICIPATED, ON 2L NC. NO SOB NOTED, NO C/O PAIN. PT KEPT CLEAN AND DRY. SAFETY MEASURES IN PLACE. BED IN LOCKED LOWEST PSOTION, SIDE RAILS X2, CALL LIGHT WITHIN REACH. WILL ENDORSE ENDORSE TO NIGHT NURSE FOR JORDEN
--- NOTE | 2019-10-28 19:35 | NUR ---
RN OPENING NOTES RECEIVED REPORT FROM LOGAN RN IMMACULATE. FOUND Pt AWAKE, RESTING IN BED. NO S/S OF ACUTE DISTRESS OR SOB NOTED. Pt IS A/OX1-2, ABLE TO STATE FULL NAME & , BUT IS UNCERTAIN WHERE SHE IS AND WHY SHE IS HERE. PLUNKETT CATHETER IN PLACE, DRAINING WELL. IV ACCESS ON HARDIK MIDLINE & RFA #18G, SL. PER LOGAN RN D/C PLANNING TO EITHER ARU OR SNF PENDING COVID-19 TEST RESULT; CASE MANAGEMENT ON CASE TO FOLLOW UP. SAFETY MEASURES IN PLACE. BED LOW, LOCKED, HOB ELEVATED, SIDE RAILS UP, CALL LIGHT AND BEDSIDE TABLE WITHIN REACH. BED ALARM ON. WILL CONTINUE TO MONITOR Pt's CONDITION AND SAFETY THROUGHOUT THE NIGHT.
[2019-10-28 20:00] VITALS: BP 116/58
[2019-10-28 21:00] VITALS: BP 116/58
[2019-10-28] MEDS: LATANOPROST EYE DROP 0.005% 2.5 ML BOTTLE EACHEYE SCH (22:34)
--- NOTE | 2019-10-29 06:45 | NUR ---
RN CLOSING NOTES NO SIGNIFICANT CHANGES IN Pt's CONDITION. Pt REMAINED STABLE DURING THE NIGHT. NO S/S OF ACUTE DISTRESS OR SOB NOTED DURING THE SHIFT. ALL NEEDS MET AND ATTENDED TO. SAFETY MEASURES IN PLACE. BED ALARM ON. Pt IS RESTING COMFORTABLY IN BED. WILL ENDORSE TO DAYSHIFT RN FOR Pt's JORDEN.
[2019-10-29] MEDS: LEVOTHYROXINE SODIUM 25 MCG TABLET PO SCH (07:57)
[2019-10-29 08:00] VITALS: BP 94/47
--- NOTE | 2019-10-29 08:00 | NUR ---
MS DORAN OPEINING NOTES RECEIVED PATIENT IN BED, AWAKE, CONSCIOUS, COOPERATIVE. NO SIGNS OF RESPIRATORY DISTRESS, HARDIK MIDLINE, RFA 18G SALINE LOCK, NO REDNESS OR INFILTRATION NOTED, SIDE RAILS UP. Addendum: 10/29/19 at 1034 by VIKY CAMARGO RN WITH PLUNKETT CATHETER ATTACHED, YELLOWISH URINE NOTED
[2019-10-29] MEDS: Fluoxetine 10 mg capsule PO SCH (09:34)
[2019-10-29] MEDS: PANTOPRAZOLE 40 MG/PACK PACK PO SCH (09:34)
[2019-10-29] MEDS: ENOXAPARIN SODIUM 30 MG/0.3 ML DISP.SYRIN SQ SCH (09:35)
[2019-10-29 16:00] VITALS: BP 107/52
--- NOTE | 2019-10-29 19:02 | NUR ---
MS RN CLOSING NOTES ENDORSED PATIENT TO PERSONAL INJURY ATTORNEY NURSE IN BED, AWAKE, CONSCIOUS, COOPERATIVE, NO SIGNS OF RESPIRATORY DISTRESS, HARDIK MIDLINE AND RFA 18G SL, NO REDNESS OR INFILTRATION NOTED, SIDE RAILS UP FOR SAFETY.
--- NOTE | 2019-10-29 19:35 | NUR ---
MS RN NOTES PATIENT RECEIVED, ALERT AND ORIENTED X 2. PATIENT LAYING IN BED COMFORTABLY. NO SIGNS OF RESPIRATORY DISTRESS PRESENT AT THIS TIME, WITH NO SIGNS OF SOB, AND WITH EVEN NON-LABORED BREATHING. PATIENT SKIN WARM AND DRY TO TOUCH. PLUNKETT CATHETER IN PLACE AND INTACT, WITH CLEAR YELLOW URINE OUTPUT. PATIENT IV ACCESS IN PLACE INTACT. PROVIDED COMFORT MEASURES TO PATIENT, WITH NO PAIN OR DISCOMFORT AT THIS TIME. SAFETY PRECAUTIONS IN PLACE, WITH BED IN THE LOWEST POSITION, BILATERAL SIDE RAILS UP, BED LOCKED, BED ALARM ON, AND CALL LIGHT WITHIN EASY REACH OF PATIENT. WILL CONTINUE TO MONITOR.
[2019-10-29 20:30] VITALS: BP 130/57
[2019-10-29] MEDS: LATANOPROST EYE DROP 0.005% 2.5 ML BOTTLE EACHEYE SCH (21:41)
[2019-10-30 00:08] LABS: APPEARANCE,URINE CLEAR (CLEAR); BILIRUBIN,URINE NEGATIVE (NEGATIVE); BLOOD, URINE TRACE-INTA Ery/uL (NEGATIVE); COLOR,URINE YELLOW (YELLOW); KETONES,URINE NEGATIVE (NEGATIVE); LEUKOCYTE ESTERASE ,URINE NEGATIVE (NEGATIVE); NITRITE, URINE NEGATIVE (NEGATIVE); PROTEIN,URINE TRACE mg/dl (NEGATIVE); UGLUCOSE NEGATIVE (NEGATIVE); UROBILINOGEN,URINE 0.2 EU/dL (0.2)
[2019-10-30 01:09] LABS: BACTERIA,URINE None seen /HPF (None Seen); RBC,URINE 0-2 /HPF (0-2); SQUAMOUS EPITHELIAL CELL,UR Few /HPF (None Seen); WBC,URINE 0-2 /HPF (0-3)
[2019-10-30 02:05] LABS: CREATININE, URINE 36.4 MG/DL (30.0-125.0); URINE TOTAL PROTEIN 14.7 mg/dL (0-11.9)
[2019-10-30 05:28] LABS: EOSINOPHIL,URINE Few
--- NOTE | 2019-10-30 06:32 | NUR ---
MS RN NOTES PATIENT IN BED SLEEPING. ON ROOM AIR WITH NO SIGNS OF RESPIRATORY DISTRESS, WITH EVEN NON-LABORED BREATHING. PATIENT SKIN KEPT CLEAN AND DRY. IV ACCESS ON RIGHT UPPER ARM, MIDLINE, INTACT AND PATENT. PROVIDED COMFORT MEASURES TO PATIENT. DENIES ANY PAIN OR DISCOMFORT AT THIS TIME. SAFETY PRECAUTIONS IN PLACE WITH BED LOCKED, BED IN THE LOWEST POSITION, BED ALARM ON, BILATERAL SIDE RAILS UP, AND CALL LIGHT WITHIN EASY REACH OF THE PATIENT, WILL ENDORSE PLAN OF CARE TO UPCOMING DAYSHIFT NURSE.
[2019-10-30 07:08] LABS: BASOPHILS % (AUTO) 0.4 % (0.0-2.0); EOSINOPHILS % (AUTO) 2.8 % (0.0-6.0); HEMATOCRIT 33 % (33-45); HEMOGLOBIN 10.9 g/dL (11.5-14.8); LYMPHOCYTES # (AUTO) 0.5 /CMM (0.8-4.8); LYMPHOCYTES % (AUTO) 7.7 % (20.0-44.0); MEAN CORPUSCULAR HGB CONC 34 g/dl (31.0-36.0); MEAN CORPUSCULAR VOLUME 93 fL (82-100); MONOCYTES # (AUTO) 1.2 /CMM (0.1-1.30); MONOCYTES % (AUTO) 17.5 % (2.0-12.0); NEUTROPHILS # (AUTO) 4.8 /CMM (1.8-8.9); NEUTROPHILS % (AUTO) 71.6 % (43.0-81.0); PLATELET COUNT (AUTO) 189 /CMM (150-450); WHITE BLOOD COUNT (AUTO) 6.7 K/uL (4.3-11.0)
[2019-10-30 07:25] LABS: ALANINE AMINOTRANSFERASE 25 U/L (12-78); ALBUMIN 2.5 g/dL (3.4-5.0); ALKALINE PHOSPHATASE 49 U/L (46-116); ASPARTATE AMINOTRANSFERASE 21 U/L (15-37); BILIRUBIN,TOTAL 0.5 mg/dL (0.2-1.0); CALCIUM, SERUM 8.8 mg/dL (8.5-10.1); CARBON DIOXIDE 31 mmol/L (21-32); CHLORIDE 97 mmol/L (98-107); CREATININE 2.5 mg/dL (0.6-1.3); GLUCOSE 90 mg/dL (74-106); MAGNESIUM 1.8 mg/dL (1.8-2.4); PHOSPHORUS 3.3 mg/dL (2.5-4.9); POTASSIUM 3.5 mmol/L (3.5-5.1); SODIUM SERUM 135 mmol/L (136-145); TOTAL PROTEIN, SERUM 6.1 g/dL (6.4-8.2); UREA NITROGEN, BLOOD 41 mg/dL (7-18)
[2019-10-30] MEDS: LEVOTHYROXINE SODIUM 25 MCG TABLET PO SCH (07:26)
[2019-10-30 08:00] VITALS: BP 112/61
--- NOTE | 2019-10-30 08:00 | NUR ---
MS RN OPENING NOTES RECEIVED PATIENT FROM [facility] NURSE IN BED, AWAKE, CONSCIOUS, COOPERATIVE, BREATHING AT ROOM AIR, NO SIGNS OF RESPIRATORY DISTRESS, HARDIK MIDLINE, SIDE RAILS UP.
--- NOTE | 2019-10-30 09:16 | NUR ---
INFORMATION SENT:FACESHEET, PROGRESS NOTES 10/28, 24HRS REPORT,DC PLANNING,UR 10/28. [phone] FAX SENT BY AURY
[2019-10-30] MEDS: ENOXAPARIN SODIUM 30 MG/0.3 ML DISP.SYRIN SQ SCH (09:47)
[2019-10-30] MEDS: Fluoxetine 10 mg capsule PO SCH (09:48)
[2019-10-30] MEDS: PANTOPRAZOLE 40 MG/PACK PACK PO SCH (09:48)
[2019-10-30] MEDS: LEVOFLOXACIN (500MG) 500 MG TABLET PO SCH (11:35)
[2019-10-30 16:00] VITALS: BP 135/59
--- NOTE | 2019-10-30 18:46 | NUR ---
MS RN CLOSING NOTES ENDORSED PATIENT TO BEAD INSPECTOR IN BED, AWAKE, CONSCIOUS, COOPERATIVE, BREATHING AT ROOM AIR, NO SIGNS OF RESPIRATORY DISTRESS, HARDIK MIDLINE, NO REDNESS OR INFILTRATION NOTED, SIDE RAILS UP FOR SAFETY.
--- NOTE | 2019-10-30 19:25 | NUR ---
MS RN NOTES PATIENT RECEIVED IN BED, ALERT AND ORIENTED X 2. ON ROOM AIR, WITH NO SIGNS OF RESPIRATORY DISTRESS, WITH NO SIGNS SOB AND WITH EVEN NON-LABORED BREATHING. PATIENT IV ACCESS IN PLACE PATENT AND INTACT. PATIENT SKIN WARM AND DRY. PROVIDED COMFORT MEASURES. SAFETY PRECAUTIONS IN PLACE WITH BED LOCKED, BED IN THE LOWEST POSITION, BILATERAL SIDE RAILS UP, AND CALL LIGHT WITHIN EASY REACH OF THE PATIENT. WILL CONTINUE TO MONITOR PATIENT.
[2019-10-30 20:00] VITALS: BP 102/52
[2019-10-30] MEDS: LATANOPROST EYE DROP 0.005% 2.5 ML BOTTLE EACHEYE SCH (22:11)
--- NOTE | 2019-10-31 06:16 | NUR ---
MS RN NOTES PATIENT IN BED, ALERT AND ORIENTED X 2. ON ROOM AIR, NO SIGNS OF RESPIRATORY DISTRESS, SOB, AND WITH EVEN NON-LABORED BREATHING. PATIENT SKIN KEPT CLEAN AND DRY. IV ACCESS ON RIGHT UPPER ARM, INTACT, PATENT, AND IN PLACE. PATIENT DENIES ANY PAIN OR DISCOMFORT AT THIS TIME. PROVIDED COMFORT MEASURES. SAFETY PRECAUTIONS IN PLACE WITH BED IN THE LOWEST POSITION, BILATERAL SIDE RAILS UP, BED LOCKED, BED ALARM ON AND CALL LIGHT WITHIN EASY REACH OF PATIENT. WILL ENDORSE PLAN OF CARE TO UPCOMING DAYSHIFT NURSE.
--- NOTE | 2019-10-31 07:30 | NUR ---
MS RN NOTES RECEIVED PATIENT IN BED, ALERT AND ORIENTED X 2. ON ROOM AIR, NO SIGNS OF RESPIRATORY DISTRESS, SOB, AND WITH EVEN NON-LABORED BREATHING. IV ACCESS ON RIGHT UPPER ARM, INTACT, PATENT, AND IN PLACE. SAFETY PRECAUTIONS IN PLACE WITH BED IN THE LOWEST POSITION, BILATERAL SIDE RAILS UP, BED LOCKED, BED ALARM ON AND CALL LIGHT WITHIN EASY REACH OF PATIENT. WILL CONTINUE TO MONITOR.
[2019-10-31 08:00] VITALS: BP 106/58
[2019-10-31] MEDS: LEVOTHYROXINE SODIUM 25 MCG TABLET PO SCH (08:38)
[2019-10-31] MEDS: Fluoxetine 10 mg capsule PO SCH (08:38)
[2019-10-31] MEDS: PANTOPRAZOLE 40 MG/PACK PACK PO SCH (08:38)
[2019-10-31] MEDS: ENOXAPARIN SODIUM 30 MG/0.3 ML DISP.SYRIN SQ SCH (08:46)
[2019-10-31 16:00] VITALS: BP 101/57
--- NOTE | 2019-10-31 18:43 | NUR ---
MS RN NOTES PATIENT IN BED, ALERT AND ORIENTED X 2. ON ROOM AIR, NO SIGNS OF RESPIRATORY DISTRESS, SOB, AND WITH EVEN NON-LABORED BREATHING. IV ACCESS ON RIGHT UPPER ARM, INTACT, PATENT, AND IN PLACE. SAFETY PRECAUTIONS IN PLACE WITH BED IN THE LOWEST POSITION, BILATERAL SIDE RAILS UP, BED LOCKED, BED ALARM ON AND CALL LIGHT WITHIN EASY REACH OF PATIENT. WILL ENDORSE TO CARPENTRY SPECIALIST NURSE FOR JORDEN.
--- NOTE | 2019-10-31 19:27 | NUR ---
MS RN NOTES PATIENT RECEIVED IN BED. ALERT AND ORIENTED X 2. PATIENT ON ROOM AIR AT THIS TIME WITH NO COMPLAINTS OF SOB, NO SIGNS OF RESPIRATORY DISTRESS, AND WITH EVEN NON-LABORED BREATHING. PATIENT SKIN WARM AND DRY TO TOUCH. PATIENT IV ACCESS ON RIGHT UPPER ARM, INTACT, IN PLACE, AND PATENT. DENIES PAIN OR DISCOMFORT AT THIS TIME, PROVIDED COMFORT MEASURES TO PATIENT. SAFETY PRECAUTIONS IN PLACE WITH BED LOCKED, BED IN THE LOWEST POSITION, BED ALARM ON, BILATERAL SIDE RAILS UP, AND CALL LIGHT WITHIN EASY REACH OF THE PATIENT. WILL CONTINUE TO MONITOR PATIENT.
--- NOTE | 2019-10-31 19:40 | NUR ---
MS DORAN NOTES PATIENT'S HEMODIALYSIS ENDED, WITH 500mL OUTPUT. WILL CONTINUE TO MONITOR PATIENT. Addendum: 11/01/19 at 0619 by TONY MILLIGAN RN WRONG PATIENT.
[2019-10-31 20:00] VITALS: BP_SYST 108; BP_SYST 125; BP_DIAS 54; BP_DIAS 58
[2019-10-31] MEDS: LATANOPROST EYE DROP 0.005% 2.5 ML BOTTLE EACHEYE SCH (21:32)
--- NOTE | 2019-11-01 06:24 | NUR ---
MS RN NOTES PATIENT IN BED RESTING COMFORTABLY. PATIENT PRESENTS NO SIGNS OF RESPIRATORY DISTRESS AT THIS TIME, WITH EVEN NON-LABORED BREATHING. PATIENT SKIN KEPT CLEAN AND DRY. IV ACCESS INTACT AND PATENT. DENIES PAIN OR DISCOMFORT AT THIS TIME. MET ALL OF PATIENT'S NEEDS. SAFETY PRECAUTIONS IN PLACE WITH BED LOCKED, BED ALARM ON, BED IN THE LOWEST POSITION, BILATERAL SIDE RAILS UP AND CALL LIGHT WITHIN EASY REACH OF THE PATIENT. WILL ENDORSE PLAN OF CARE TO UPCOMING DAYSHIFT NURSE.
--- NOTE | 2019-11-01 07:30 | NUR ---
MS/RN Opening note Patient received from regional ehs manager. A/O X2-3, vital signs stable, no fever noted. Denies any pain at this this time. Safety measures in place, bed in low setting, call light within reach, will continue to monitor and ensures safety.
[2019-11-01 08:00] VITALS: BP 147/68
[2019-11-01] MEDS: LEVOTHYROXINE SODIUM 25 MCG TABLET PO SCH (08:21)
[2019-11-01] MEDS: PANTOPRAZOLE 40 MG/PACK PACK PO SCH (08:21)
[2019-11-01] MEDS: Fluoxetine 10 mg capsule PO SCH (08:21)
[2019-11-01] MEDS: ENOXAPARIN SODIUM 30 MG/0.3 ML DISP.SYRIN SQ SCH (08:23)
--- NOTE | 2019-11-01 09:15 | NUR ---
MS/advertising assistant manager Morning medication administered as ordered.
--- NOTE | 2019-11-01 09:15 | NUR ---
MS/RN Medications Morning medications administered as ordered, no difficulty swallowing.
--- NOTE | 2019-11-01 10:45 | NUR ---
MS/RN Exit care Exit care prepared as for possible discharge later today.
[2019-11-01] MEDS: LEVOFLOXACIN (500MG) 500 MG TABLET PO SCH (12:03)
--- NOTE | 2019-11-01 12:51 | NUR ---
MS/cylinder inspector and tester update Spoke with patient's daughter Lauren. Updated as to plan of care, made aware that patient was [facility] facility.
[2019-11-01 16:00] VITALS: BP 100/50
--- NOTE | 2019-11-01 16:00 | NUR ---
MS/RN Case manger update Received call from Agnes (showcase maker), stating that patient had been accepted at [facility], and transport arranged for .
--- NOTE | 2019-11-01 18:00 | NUR ---
MS/RN Exit care Exit care prepared, chart copied ready for discharge. Attempted to call Michael Hinojosa to give report but RN guest service supervisor unable to take call at this time per Romy. Stated that she would call me back.
--- NOTE | 2019-11-01 18:14 | NUR ---
MS/extension educator Daughter Lauren called and informed that patient was due to be picked up and transfered to [facility] this evening at 1945. -Lauren
--- NOTE | 2019-11-01 19:35 | NUR ---
MS RN OPENING NOTES RECEIVED PATIENT FROM MORNING SHIFT, ALERT AND ORIENTED X 2 CONFUSED. VERBALLY RESPONSIVE AND ABLE TO FOLLOW SIMPLE DIRECTIONS. BREATHING REGULAR AND UNLABORED ON OXYGEN AT 2L/MIN VIA NASAL CANNULA. RIGHT UPPER ARM MIDLINE INTACT AND PATENT, FLUSHING WELL WITH NO BLEEDING OR S/S OF INFECTION NOTED. NO S/S OF PAIN/DISCOMFORT SEEN AT THIS TIME. BED LOW AND LOCKED ON SEMI FOWLERS POSITION. CALL LIGHT IN REACH. WILL CONTINUE TO MONITOR.
--- NOTE | 2019-11-01 19:50 | NUR ---
MS ENVIRONMENT FRIENDLY LANDSCAPE DESIGNER NOTES PICKED-UP BY [facility] ACCOMPANIED BY 2 EMT'S, ON STABLE CONDITION. REMAINED ALERT AND ORIENTED X 2. AFEBRILE WITH NO S/S OF RESPIRATORY DISTRESS OBSERVED. RIGHT UPPER ARM MIDLINE REMOVED WITH NO ACTIVE BLEEDING SEEN. BELONGINGS CHECK BY RN TRANSITIONAL CARE. REPORT GIVEN BY AM SHIFT TO ESPINOZA CARVAJAL OF [facility] GOING TO ROOM 37A. BP109/50 HR84 RR18 TEMP.98 [id number]%
== END 2019-11-01 19:50 | DRG 280 ==
LOC: ER 08:56 → ICU 10:03 → TELE1 10-23 17:15 → TELE2 10-24 20:53 → MEDSG2 10-25 08:31 → MED 10-26 22:49
PROVIDERS: ATTEND Hospitalist
PROC: 05HY33Z Insertion of Infusion Device into Upper Vein, Percutaneous Approach (ICD-10-PCS; principal; 2019-10-23)
PROC: 0W993ZZ Drainage of Right Pleural Cavity, Percutaneous Approach (ICD-10-PCS; 2019-10-25)
DX: I13.0 Hypertensive heart and chronic kidney disease with heart failure and stage 1 through stage 4 chronic kidney disease, or unspecified chronic kidney disease (principal); I50.31 Acute diastolic (congestive) heart failure; I21.A1 Myocardial infarction type 2; J96.01 Acute respiratory failure with hypoxia; G93.41 Metabolic encephalopathy; N17.0 Acute kidney failure with tubular necrosis; J96.02 Acute respiratory failure with hypercapnia; J15.9 Unspecified bacterial pneumonia; N39.0 Urinary tract infection, site not specified; E87.2 Acidosis; D68.69 Other thrombophilia; I48.20 Chronic atrial fibrillation, unspecified; N18.4 Chronic kidney disease, stage 4 (severe); E44.0 Moderate protein-calorie malnutrition; J91.8 Pleural effusion in other conditions classified elsewhere; N18.9 Chronic kidney disease, unspecified; F32.9 Major depressive disorder, single episode, unspecified; E03.9 Hypothyroidism, unspecified; I08.0 Rheumatic disorders of both mitral and aortic valves; Z68.20 Body mass index [BMI] 20.0-20.9, adult; Z66 Do not resuscitate; B96.20 Unspecified Escherichia coli [E. coli] as the cause of diseases classified elsewhere; J44.9 Chronic obstructive pulmonary disease, unspecified; E80.6 Other disorders of bilirubin metabolism
CPT/HCPCS: 36410; 36415; 36600; 71045-TC; 76770-TC; 80048-TC; 80053-TC; 80061-TC; 81000-TC; 82248-TC; 82550-TC; 82570-TC; 82728-TC; 82803-TC; 83605-TC; 83615-TC; 83735-TC; 83880; 84100-TC; 84155-TC; 84300-TC; 84443-TC; 84484-TC; 85025-TC; 85378-TC; 85385-TC; 85652-TC; 85730-TC; 86140-TC; 87040-TC; 87086-TC; 87186-TC; 93307-TC; 97110-TC; 97116-TC; 97530-TC; 99082-TC; A4216; C9113; G0378; J0360; J1650; J1940; J1956; J3475; J3480; J3490; J7050; J7060

== ENCOUNTER 2019-11-20 09:16 | Emergency (ER) | payer MEDICARE ==
[~2019-11-20] VITALS: Ht 167.6 cm; Wt 59.9 kg
[~2019-11-20 09:16] MED LIST changes: +FLUO10CA27 PO; +LEVO25TA9 PO; +LEVO500T23 PO
--- NOTE | 2019-11-20 09:27 | NUR ---
EDY FROM HOME C/O R HIP PAIN S/P GLF 3 DAYS AGO, PER SON UNWITNESSED, HOOKED TO MONITOR, CHANGED TO HOSP GOWN, WARM BLABKET PROVIDED, PATIENT AAO X 2, BREATHING EVEN AND UNLABORED. AWAITING MD VICKERS.
--- NOTE | 2019-11-20 09:42 | NUR ---
WHEELED OUT VIA [facility] FOR CT SCAN.
--- NOTE | 2019-11-20 10:44 | NUR ---
PATIENT IN BED ASLEEP, EASILY AROUSABLE BY VOICE. HOOKED TO MONITOR, WILL CONTINUE TO MONITOR ACCORDINGLY.
--- NOTE | 2019-11-20 11:08 | NUR ---
TANIA ON-CALL PAGED,KALUS HOFFMAN
[2019-11-20] MEDS ORDERED: HYDROCODONE/APAP 5/325MG TABLET PO ONE (11:30)
[2019-11-20] MEDS ORDERED: HYDROCODONE/APAP 5/325MG TABLET ONE (11:40)
--- NOTE | 2019-11-20 11:54 | NUR ---
CALLED TRANSPORT ETA IS 1400 PER [place] TRIP NUMBER IS [phone]
--- NOTE | 2019-11-20 13:26 | NUR ---
Patient picked up by Michelle Bartholomew in stable condition. Written and verbal after care instructions given. Patient verbalizes understanding of instruction. Patient will be brought home.
[2019-11-20 13:31] VITALS: BP 126/63
== END 2019-11-20 13:33 | disposition home or self-care (01) ==
LOC: ER 09:21
DX: M87.851 Other osteonecrosis, right femur (principal); I48.91 Unspecified atrial fibrillation; G89.29 Other chronic pain; Z98.890 Other specified postprocedural states; Z79.899 Other long term (current) drug therapy
CPT/HCPCS: 73700-TC

== ENCOUNTER 2019-11-25 08:34 | Inpatient (IN) | payer MEDICARE ==
[~2019-11-25] VITALS: Ht 162.6 cm; Wt 51.3 kg
[~2019-11-25 08:34] MED LIST changes: -LEVO500T23 PO; +LEVO500T75 PO
--- NOTE | 2019-11-25 08:36 | NUR ---
BIBRA 839 FROM HOME, C/O BILAT HIP & KNEE PAIN, "CHRONIC PAIN", HAS BEEN HERE 4 DAYS AGO, RX TRAMADOL NOT HELPING, SON W AUTISM CAN'T TAKE CARE OF MOTHER, REQUESTS SNF PLACEMENT, TO ER BED 11, HOOKED TO MONITOR, CHANGED TO HOSP GOWN, WARM BLANKET PROVIDED, PATIENT AAO x 3, BREATHING EVEN AND UNLABORED. AWAITING MD VICKERS.
[2019-11-25] MEDS ORDERED: MORPHINE SULFATE INJ 4 MG/ML DISP.SYRIN ONE (09:23)
--- NOTE | 2019-11-25 09:26 | NUR ---
ESTABLISHED IV PERIPHERAL LINE AT RAC, 20G
[2019-11-25 09:27] LABS: BASOPHILS % (AUTO) 0.4 % (0.0-2.0); EOSINOPHILS % (AUTO) 3.7 % (0.0-6.0); HEMATOCRIT 38 % (33-45); HEMOGLOBIN 12.4 g/dL (11.5-14.8); LYMPHOCYTES # (AUTO) 0.7 /CMM (0.8-4.8); MEAN CORPUSCULAR HGB CONC 33 g/dl (31.0-36.0); MEAN CORPUSCULAR VOLUME 93 fL (82-100); MONOCYTES # (AUTO) 0.4 /CMM (0.1-1.30); NEUTROPHILS # (AUTO) 3.1 /CMM (1.8-8.9); NEUTROPHILS % (AUTO) 70.9 % (43.0-81.0); PLATELET COUNT (AUTO) 189 /CMM (150-450); RED BLOOD CELL COUNT(AUTO) 4.07 MIL/uL (4.0-5.2); WHITE BLOOD COUNT (AUTO) 4.4 K/uL (4.3-11.0)
[2019-11-25] MEDS ORDERED: MORPHINE SULFATE INJ 2 MG/ML DISP.SYRIN IV ONE (09:30)
[2019-11-25] MEDS ORDERED: IV NS 0.9% 500 ML BAG IV ONE (09:30)
--- NOTE | 2019-11-25 09:32 | NUR ---
PATIENT IN BED ASLEEP, EASILY AROUSABLE BY VOICE. TUCKED IN BLANKET, HOOKED TO MONITOR. KEPT WARM AND COMFORTABLE. WILL CONTINUE TO MONITOR ACCORDINGLY.
[2019-11-25 09:35] LABS: CALCIUM, SERUM 9.4 mg/dL (8.5-10.1); CARBON DIOXIDE 27 mmol/L (21-32); CHLORIDE 105 mmol/L (98-107); CREATININE 1.5 mg/dL (0.6-1.3); GLUCOSE 85 mg/dL (74-106); POTASSIUM 3.8 mmol/L (3.5-5.1); SODIUM SERUM 139 mmol/L (136-145); UREA NITROGEN, BLOOD 21 mg/dL (7-18)
[2019-11-25 09:40] LABS: ALANINE AMINOTRANSFERASE 15 U/L (12-78); ALBUMIN 2.8 g/dL (3.4-5.0); ALKALINE PHOSPHATASE 66 U/L (46-116); ASPARTATE AMINOTRANSFERASE 20 U/L (15-37); BILIRUBIN,DIRECT 0.2 mg/dL (0.0-0.2); BILIRUBIN,TOTAL 0.7 mg/dL (0.2-1.0); LIPASE 104 U/L (73-393); TOTAL PROTEIN, SERUM 6.4 g/dL (6.4-8.2)
[2019-11-25] MEDS ORDERED: ASPI-1169 PO (11:25)
[2019-11-25] MEDS ORDERED: TRAM50TA2 PO (11:25)
[2019-11-25] MEDS ORDERED: IV NS 0.9% 1,000 ML IV PRN (11:57)
--- NOTE | 2019-11-25 11:58 | NUR ---
CORONAVIRUS SWAB SENT TO LAB
[2019-11-25] MEDS ORDERED: ACETAMINOPHEN 325 MG TABLET PO PRN (12:00)
[2019-11-25] MEDS ORDERED: MORPHINE SULFATE INJ 2 MG/ML DISP.SYRIN IV PRN (12:00)
[2019-11-25] MEDS ORDERED: ONDANSETRON HCL/PF 4 MG/2 ML VIAL IVP PRN (12:00)
[2019-11-25] MEDS ORDERED: MAG HYDROX/AL HYDROX/SIMETH 30 ML UDC PO PRN (12:00)
[2019-11-25] MEDS ORDERED: TRAMADOL HCL 50 MG TABLET PO PRN (12:00)
[2019-11-25] MEDS ORDERED: MAGNESIUM HYDROXIDE 30 ML UDC PO PRN (12:00)
[2019-11-25] MEDS ORDERED: Z GUARD REMEDY 2 OZ OINT TP PRN (12:00)
--- NOTE | 2019-11-25 13:06 | NUR ---
ROOM GIVEN 108
--- NOTE | 2019-11-25 13:14 | NUR ---
REPORT GIVEN TO NITZA DORAN OF TELE UNIT
[2019-11-25] MEDS: ENOXAPARIN SODIUM 40 MG/0.4 ML DISP.SYRIN SQ SCH (14:00)
--- NOTE | 2019-11-25 14:40 | NUR ---
Received patient via [employer]. Pt awake alert and oriented x2-3, able to make needs known and provide information.Skin inspected and intact. Patient unable to walk due to general weakness and chronic right hip pain. Patient requested placement after d/c, her son unable to take care of her. IV line to the RAC g 20 HL , flushing well. PAtient adm. to MS per adm. doctor. VS are stable , afebrile, tested for COVID -19(pending). Isolation initiated. Safety precautions initiated; patient educated to use call light and verbalized understanding. Belongings reviewed; patient has a wallet with credit cards. Call made to son and he is unable to pick it up today. Admitting orders received and implemented. Will continue to monitor
[2019-11-25 16:00] VITALS: BP 170/61
[2019-11-25] MEDS ORDERED: hydrALAZINE HCL 25 MG TABLET PO PRN (17:30)
--- NOTE | 2019-11-25 18:58 | NUR ---
Patient is stable , resting in bed comfortably. BP prn med administrated. Patient tolerated dinner well. Call light within reach and safety precautions in place. Will endorse to next shift for JORDEN
[2019-11-25 20:00] VITALS: BP 112/70
[2019-11-25] MEDS: LATANOPROST EYE DROP 0.005% 2.5 ML BOTTLE EACHEYE SCH (23:03)
--- NOTE | 2019-11-25 23:15 | NUR ---
PER TETE RAMSEY TO TRANSFER PATIENT TO TELE DUE TO PATIENT BEING R/O COVID.
[2019-11-26] VITALS (7 sets, daily range): BP systolic 95–156; BP diastolic 41–74
[2019-11-26 06:22] LABS: BASOPHILS % (AUTO) 0.3 % (0.0-2.0); EOSINOPHILS % (AUTO) 3.5 % (0.0-6.0); HEMATOCRIT 35 % (33-45); HEMOGLOBIN 11.5 g/dL (11.5-14.8); LYMPHOCYTES # (AUTO) 0.7 /CMM (0.8-4.8); LYMPHOCYTES % (AUTO) 14.1 % (20.0-44.0); MEAN CORPUSCULAR HGB CONC 33 g/dl (31.0-36.0); MEAN CORPUSCULAR VOLUME 92 fL (82-100); MONOCYTES # (AUTO) 0.6 /CMM (0.1-1.30); MONOCYTES % (AUTO) 12.8 % (2.0-12.0); NEUTROPHILS # (AUTO) 3.3 /CMM (1.8-8.9); NEUTROPHILS % (AUTO) 69.3 % (43.0-81.0); PLATELET COUNT (AUTO) 190 /CMM (150-450); RED BLOOD CELL COUNT(AUTO) 3.75 MIL/uL (4.0-5.2); WHITE BLOOD COUNT (AUTO) 4.7 K/uL (4.3-11.0)
[2019-11-26 07:11] LABS: CALCIUM, SERUM 9.2 mg/dL (8.5-10.1); CARBON DIOXIDE 25 mmol/L (21-32); CHLORIDE 104 mmol/L (98-107); CREATININE 1.4 mg/dL (0.6-1.3); GLUCOSE 81 mg/dL (74-106); MAGNESIUM 1.7 mg/dL (1.8-2.4); PHOSPHORUS 3.3 mg/dL (2.5-4.9); POTASSIUM 3.9 mmol/L (3.5-5.1); SODIUM SERUM 138 mmol/L (136-145); UREA NITROGEN, BLOOD 21 mg/dL (7-18)
[2019-11-26 07:19] LABS: CHOLESTEROL 253 mg/dL (<200); HDL CHOLESTEROL 51 mg/dL (40-60); LDL 192 mg/dL (0-99); THYROID STIMULATING HORMONE 26.378 uIU/mL (0.358-3.74); TRIGLYCERIDES 73 mg/dL (30-150)
--- NOTE | 2019-11-26 08:00 | NUR ---
ASSOCIATE OPENING NOTES RECEIVED PATIENT FROM LEGAL COORDINATOR NURSE IN BED, AWAKE, CONSCIOUS, COOPERATIVE, 02 @ 2LPM VIA NASAL CANNULA, UNLABORED BREATHING, NO SIGNS OF RESPIRATORY DISTRESS, RAC #20 SL, SIDE RAILS UP.
[2019-11-26] MEDS: LEVOTHYROXINE SODIUM 25 MCG TABLET PO SCH (08:06)
[2019-11-26] MEDS: MULTIVITAMINS,THERAGRAN 1 UDTAB TABLET PO SCH (08:16)
[2019-11-26] MEDS: Fluoxetine 10 mg capsule PO SCH (08:16)
[2019-11-26] MEDS: ASPIRIN 81 MG TAB.CHEW PO SCH (08:16)
[2019-11-26] MEDS: Magnesium 1GM/D5W 100ML PREMIX 100 ML IV SCH ×2 (09:56→11:50)
--- NOTE | 2019-11-26 18:27 | NUR ---
FLAME CUTTING SUPERVISOR CLOSING NOTES ENDORSED PATIENT TO CHAIR SPRINGER NURSE IN BED, AWAKE, CONSCIOUS, COOPERATIVE, 02 @ 2LPM VIA NASAL CANNULA, UNLABORED BREATHING, NO SIGNS OF RESPIRATORY DISTRESS, RAC #20 SL, SIDE RAILS UP.
--- NOTE | 2019-11-26 19:34 | NUR ---
RN OPENING NOTE RECEIVED PT IN BED IN SEMI FOWLERS POSITION, A/O X 2-3, ON 02 2 L/MIN VIA NASAL CANNULA. PT IN NO RESPIRATORY DISTRESS. NO COMPLAINS OF PAIN AT THIS TIME. IV TO RIGHT FOREARM SL PATENT INTACT AND FLUSHING WELL, SIDE RAILS UP X 2, BED LOCKED AND IN LOWEST POSITION, CALL LIGHT WITHIN REACH, WILL CONTINUE TO MONITOR PT.
[2019-11-26] MEDS: LATANOPROST EYE DROP 0.005% 2.5 ML BOTTLE EACHEYE SCH (21:40)
[2019-11-26] MEDS: ENOXAPARIN SODIUM 40 MG/0.4 ML DISP.SYRIN SQ SCH (22:02)
[2019-11-27] VITALS (8 sets, daily range): BP systolic 106–130; BP diastolic 54–77
--- NOTE | 2019-11-27 06:37 | NUR ---
RN CLOSING NOTE PT IN BED IN SEMI FOWLERS POSITION, CURRENTLY ASLEEP, ON 02 2 L/MIN VIA NASAL CANNULA. PT IN NO RESPIRATORY DISTRESS. CURRENTLY SR ON TELE MONITOR. IV TO RIGHT FOREARM SL PATENT INTACT AND FLUSHING WELL, SIDE RAILS UP X 2, BED LOCKED AND IN LOWEST POSITION, CALL LIGHT WITHIN REACH. ENDORSED TO AM RN FOR JORDEN.
[2019-11-27 06:49] LABS: CALCIUM, SERUM 8.8 mg/dL (8.5-10.1); CREATININE 1.3 mg/dL (0.6-1.3); MAGNESIUM 2.2 mg/dL (1.8-2.4); POTASSIUM 4.1 mmol/L (3.5-5.1)
--- NOTE | 2019-11-27 07:54 | NUR ---
RN OPENING NOTE Patient is resting in bed, A/O x2 with periods of confusion, in no acute distress, breathing is even and unlabored, saturating 100% on 2L NC. Tele monitor sinus rhythm 58. IV line in the RAC #20g is clean and intact. Bed is in lowest position, side rails x3 in upright position, call light is within reach, fall safety and aspiration precautions enforced. Will continue with plan of care.
[2019-11-27] MEDS: ASPIRIN 81 MG TAB.CHEW PO SCH (08:47)
[2019-11-27] MEDS: Fluoxetine 10 mg capsule PO SCH (08:47)
[2019-11-27] MEDS: MULTIVITAMINS,THERAGRAN 1 UDTAB TABLET PO SCH (08:47)
[2019-11-27] MEDS: LEVOTHYROXINE SODIUM 25 MCG TABLET PO SCH (08:51)
--- NOTE | 2019-11-27 09:56 | NUR ---
followup covid result still pending.
--- NOTE | 2019-11-27 17:34 | NUR ---
COVID RESULT FF. UP STILL PENDING.
--- NOTE | 2019-11-27 18:32 | NUR ---
RN CLOSING NOTE Patient is resting in bed, A/O x2 with periods of confusion, in no acute distress, breathing is even and unlabored, saturating 100% on 2L NC. Tele monitor sinus rhythm 70s. IV line in the RAC #20g is clean and intact. All patient needs met, all due medications given, patient kept clean and dry throughout shift. Bed is in lowest position, side rails x3 in upright position, call light is within reach, fall safety and aspiration precautions enforced. Will endorse to overnight cashier.
--- NOTE | 2019-11-27 20:00 | NUR ---
RN OPENING NOTES PT RECEIVED LAYING DOWN IN THE BED COMFORTABLY. THERE IS NO S/S OF DISTRESS. PT HAS UNLABORED BREATHING. PT SATING 98% RA. PT HAS IV R ARM G 20 S/L. IV IS PATENT,FLUSHES WELL, DRESSING INTACT AND DRY. PT IS ON NUCLEAR MEDICINE SUPERVISOR SHOWING SR HR IN 90s. SAFETY MEASURES IN PLACE BED AT LOWEST POSITION, LOCKED, CALL LIGHT IN REACH, SIDE RAILS UP X2. WILL CONTINUE TO MONITOR
[2019-11-27] MEDS: ENOXAPARIN SODIUM 40 MG/0.4 ML DISP.SYRIN SQ SCH (21:32)
[2019-11-27] MEDS: LATANOPROST EYE DROP 0.005% 2.5 ML BOTTLE EACHEYE SCH (21:34)
[2019-11-28] VITALS (8 sets, daily range): BP systolic 117–145; BP diastolic 52–73
--- NOTE | 2019-11-28 06:00 | NUR ---
RN CLOSING NOTE Patient IS SLEEPING IN THE BED. THERE IS NO S/S OF DISTRESS.PT HAS UNLABORED BREATHING, PT IS ON 2 L VIA NS SATING 99%. TELE MONITOR SHOWING SR AND HR IN 70s. THERE IS NO ACUTE CHANGE DURING MY SHIFT. SAFETY MEASURES IN PLACE BED AT LOWEST POSITION, LOCKED, CALL LIGHT IN REACH, SIDE RAILS UP X2. WILL ENDORSE TO INCOMING SHIFT FOR CONTINUITY OF CARE.
[2019-11-28] MEDS: MULTIVITAMINS,THERAGRAN 1 UDTAB TABLET PO SCH (08:35)
[2019-11-28] MEDS: LEVOTHYROXINE SODIUM 25 MCG TABLET PO SCH (08:35)
[2019-11-28] MEDS: Fluoxetine 10 mg capsule PO SCH (08:36)
[2019-11-28] MEDS: ASPIRIN 81 MG TAB.CHEW PO SCH (08:36)
--- NOTE | 2019-11-28 10:30 | NUR ---
RN NOTES CALL RECEIVED FROM LAB STATING PATIENTS COVID RESULTS ARE NEGATIVE.
--- NOTE | 2019-11-28 11:07 | NUR ---
covid negative md notified,nursing sup notified awaits room in clean unit.
--- NOTE | 2019-11-28 13:30 | NUR ---
MS RN ADMITTING NOTES PT TRANSPORTED TO UNIT ON A BED AND AWAKE. AO X 3. REPORT RECEIVED FROM ESPINOZA HAY. PT ON 2LPM OXYGEN VIA NC SATURATING AT 98%.. NO SOB NOTED, NO C/O PAIN AT THIS TIME, NO S/S OF ANY ACUTE DISTRESS NOTED. IV ACCESS TO RAC G#20 SL, INTACT, PATENT AND FLUSHING WELL. PT ABLE TO VERBALIZE NEEDS. RIGHT UPPER BACK SCAB AND RIGHT UPPER ARM SCAB NOTED. MEPILEX APPLIED. PICTURES TAKEN, DOCUMENTED AND FILED IN CHART. BELONGING ASSESSED AND FILED IN CHART. ASPIRATIONS AND SAFETY PRECAUTIONS IN PLACE. BED IN LOWEST LOCKED POSITION, BED ALARM ON, SIDERAILS UP, CALL LIGHT WITHIN REACH. WILL CONTINUE TO MONITOR
--- NOTE | 2019-11-28 13:34 | NUR ---
MS RN NOTES PATIENT TRANSFERRED TO ROOM 308-1, BED SIDE REPORT GIVEN TO IMACULATE. PATIENT IN STABLE CONDITION. TRANSFERRED TO NONE COVID FLOOR.
--- NOTE | 2019-11-28 18:48 | NUR ---
MS RN CLOSING NOTES PT AWAKE IN BED AT THIS TIME WATCHING TV. PT REMAINED STABLE THROUGHOUT SHIFT. NO SOB NOTED, NO C/O PAIN AT THIS TIME, NO S/S OF ANY ACUTE DISTRESS NOTED. PT KEPT CLEAN AND DRY. ALL NEEDS, CARE, TREATMENT ADMINISTERED ANTICIPATED PER ORDER. ASPIRATIONS AND SAFETY PRECAUTIONS IN PLACE. BED IN LOWEST LOCKED POSITION, BED ALARM ON, SIDE RAILS UP, CALL LIGHT WITHIN REACH. WILL ENDORSE TO EARTH SCIENCES PROFESSOR NURSE FOR JORDEN.
--- NOTE | 2019-11-28 19:44 | NUR ---
NICK FROM [facility] REQUESTED DISCHARGE ORDERS FOR PT AT THIS TIME. PT PICKED UP TIME SCHEDULE AT 2130. CHICHI FAM, D[place]TON WAS MADE AWARE. ENDORSE TO MANAGER MEDICAL AFFAIRS NURSE FOR JORDEN
--- NOTE | 2019-11-28 19:49 | NUR ---
MS RN NOTES
--- NOTE | 2019-11-28 19:53 | NUR ---
MS RN OPENING NOTES PATIENT RECEIVED RESTING IN BED A/O X3. ON 2L OF O2 WITH BREATHING EVEN AND UNLABORED, NO SOB NOTED. NO SIGNS OF ACUTE DISTRESS. NO COMPLAINTS OF PAIN OR DISCOMFORT. IV LOCATED ON RAC #20 SL. SAFETY PRECAUTIONS IN PLACE WITH BED IN LOWEST POSITION, CALL LIGHT WITHIN REACH, BREAKS ON, SIDE RAILS UP. WILL CONTINUE TO MONITOR THROUGHOUT THE NIGHT.
[2019-11-28] MEDS: ENOXAPARIN SODIUM 40 MG/0.4 ML DISP.SYRIN SQ SCH (21:09)
[2019-11-28] MEDS: LATANOPROST EYE DROP 0.005% 2.5 ML BOTTLE EACHEYE SCH (22:00)
--- NOTE | 2019-11-28 22:22 | NUR ---
MS RN NOTES D/C ORDER RECEIVED. SPOKE TO NICK ABOUT DISCHARGE, TRANSPORTATION HANDLED WITH [facility]- ON WILL CALL WITH REFERENCE NUMBER #[id number] PHONE NUMBER [phone]. CALLED TO SCHEDULE HEBREW TEACHER TIME BUT NO AVAILABLE TIMES AT THE MOMENT, WAS TOLD TO TRY AND CALL AGAIN IN AN HOUR. WILL FOLLOW UP WITH HEBREW TEACHER. PATIENT OK WITH LEAVING [facility] TO [facility].
--- NOTE | 2019-11-28 22:40 | NUR ---
MS RN NOTES CALLED [facility], THEY ARE EXPECTING PATIENT. INFORMED THEM OF POSSIBLE TRANSPORT TONIGHT OR TOMORROW, DEPENDING ON AVAILABLE TRANSPORTATION. KNOW ABOUT SITUATION AND SAID IT WAS OK.
--- NOTE | 2019-11-28 22:59 | NUR ---
MS RN NOTES [employer] [employer] CALLED. EXPECTED ENERGY BROKER TIME AT 11:40.
--- NOTE | 2019-11-28 23:06 | NUR ---
MS RN NOTES REPORT GIVEN TO NURSE AT [facility]. AWAITING ARRIVAL.
--- NOTE | 2019-11-28 23:34 | NUR ---
MS RN NOTES CALLED [facility], ABOUT PATIENT HOME MEDICATIONS IN PHARMACY. SON SAID HE WOULD PICK IT UP.
--- NOTE | 2019-11-29 00:38 | NUR ---
MS JOB DEVELOPMENT SPECIALIST NOTES PATIENT DISCHARGED VIA GURNEY ACCOMPANIED BY TRANSPORTERS TO [facility]. PATIENT MEDICALLY STABLE. PATIENT A/O X3- NO COMPLAINTS OF PAIN OR DISCOMFORT. ALL BELONGINGS SIGNED FOR. DISCHARGE PACKET WITH PATIENT, EDUCATION PROVIDED. IV REMOVED. MEDICAL BAND REMOVED.
== END 2019-11-29 00:40 | DRG 554 ==
LOC: ER 08:42 → MEDSG1 13:32 → TELE1 23:33 → MED 11-28 13:22
PROVIDERS: ADMIT Nurse Practitioner Acute Care; ATTEND Nurse Practitioner Acute Care
DX: M16.11 Unilateral primary osteoarthritis, right hip (principal); E44.0 Moderate protein-calorie malnutrition; I48.20 Chronic atrial fibrillation, unspecified; I50.22 Chronic systolic (congestive) heart failure; I13.0 Hypertensive heart and chronic kidney disease with heart failure and stage 1 through stage 4 chronic kidney disease, or unspecified chronic kidney disease; D68.59 Other primary thrombophilia; Z68.1 Body mass index [BMI] 19.9 or less, adult; M25.551 Pain in right hip; N18.9 Chronic kidney disease, unspecified; E03.9 Hypothyroidism, unspecified; R53.1 Weakness; R53.81 Other malaise; G89.29 Other chronic pain; F32.9 Major depressive disorder, single episode, unspecified; E88.09 Other disorders of plasma-protein metabolism, not elsewhere classified; Z88.0 Allergy status to penicillin; I25.2 Old myocardial infarction
CPT/HCPCS: 36415; 80048-TC; 80061-TC; 80076-TC; 83690-TC; 83735-TC; 84100-TC; 84443-TC; 84484-TC; 85025-TC; 87081-TC; G0378; J1650; J2270; J3475; J7040; J7050; U0003-CS